=== PATIENT | female | born 1965 | race Caucasian/White ===

== ENCOUNTER → 2017-01-23 | Outpatient (CLI) | payer OTHER ==
[~2017-01-23] MED LIST: /AUGM875TA; BISO5TAB5 PO; DARV100T; DARVOCET-N PO; DOXE50CA2 OR; DOXYCYC100 PO; DRIS50002 PO; HYDR-3363 PO; HYDR25TA8 OR; LISINOPR10; LORTAB; OMEPRAZ20 PO; PRIN10TA; VENL150C43 PO; VICO5TAB16 PO; ZOFR8TAB; ZOFRAN8 PO; ZOLO50TA; ZOLOFT25; ZOLOFT50 PO
--- NOTE | 2017-01-23 16:21 | REPMRS ---
Patient History The patient states she had a clinical breast exam in 12/2016. Family history of ovarian cancer in mother under age 50 and colorectal cancer in maternal cousin under age 50. Benign US guided breast biopsy of the right breast, February 2015. Benign radio exam breast specimen of the left breast, December 06, 2014. Benign stereotatic loc for ea lesion of the left breast, December 06, 2014. Digital Woman Screen Mammo: January 23, 2017 - Exam #: [id number] Bilateral CC and MLO view(s) were taken. Technologist: Daysi Hubbard, Technologist Prior study comparison: October 27, 2014, left breast digital mammo diagnostic unilateral, performed at [facility]. October 13, 2014, digital woman screen mammo performed at [facility]. May 13, 2013, digital woman screen mammo performed at [facility]. FINDINGS: There are scattered fibroglandular densities. There is a needle biopsy marker clip in each breast. There has been no change in the appearance of the mammogram from the prior studies. There is a mild amount of scattered fibroglandular density which is fairly symmetric. There is no interval development of dominant mass, architectural distortion, or clustered microcalcification suggestive of malignancy. ASSESSMENT: BI-RADS/ACR category 1 mammogram. Negative. Recommendation Routine screening mammogram in 1 year (for women over age 40). This mammogram was interpreted with the aid of an FDA-approved computer-aided dectection system. Electronically Signed By: Keith Antoine MD 01/23/17 [id number]
== END ==
LOC: M WHC 14:50
PROVIDERS: ATTEND Nurse Practitioner Women's Health
DX: Z12.31 Encounter for screening mammogram for malignant neoplasm of breast (principal)

== ENCOUNTER → 2017-01-23 | Outpatient (REF) | payer OTHER | LOC: M SFHCWAGY 15:34 | PROVIDERS: ATTEND Nurse Practitioner Women's Health | DX: Z12.4 Encounter for screening for malignant neoplasm of cervix (principal) ==

== ENCOUNTER 2018-04-13 13:10 | Emergency (ER) | payer OTHER ==
[2018-04-13 13:56] LABS: HEMATOCRIT 29.9 % (36.0-47.0); HEMOGLOBIN 8.8 g/dl (12.0-15.5); MEAN CORPUSCULAR HEMOGLOBIN 20.5 pg (27.0-33.0); MEAN CORPUSCULAR HGB CONC 29.4 g/dl (32.0-36.5); MEAN CORPUSCULAR VOLUME 69.5 fl (80.0-96.0); PLATELET COUNT, AUTOMATED 133 10^3/uL (150-450); RED CELL DISTRIBUTION WIDTH 18.1 % (11.5-14.5); WHITE BLOOD COUNT 5.9 10^3/uL (4.0-10.0)
[2018-04-13 14:12] LABS: CONTROL LINE HCG INT CTR LINE PRESENT; HCG, SERUM QUALITATIVE NEGATIVE (NEGATIVE)
[2018-04-13 14:39] LABS: ACETAMINOPHEN LEVEL < 2.0 UG/ML (10.0-30.0); ALBUMIN 3.4 GM/DL (3.2-5.2); ALBUMIN/GLOBULIN RATIO 0.94 (1.00-1.93); ALKALINE PHOSPHATASE 96 U/L (45-117); ALT/SGPT 50 U/L (12-78); ANION GAP 12 MEQ/L (8-16); AST/SGOT 62 U/L (7-37); BILIRUBIN,DIRECT 0.1 MG/DL (0.0-0.2); BILIRUBIN,TOTAL 0.3 MG/DL (0.2-1.0); BLOOD UREA NITROGEN 5 MG/DL (7-18); CALCIUM LEVEL 8.2 MG/DL (8.5-10.1); CARBON DIOXIDE LEVEL 22 MEQ/L (21-32); CHLORIDE LEVEL 106 MEQ/L (98-107); CPK CREATINE PHOSPHOKINASE 76 U/L (26-192); CREATININE FOR GFR 0.53 MG/DL (0.55-1.30); ETHYL ALCOHOL (ETHANOL) 0.332 % (0.000-0.010); GLOMERULAR FILTRATION RATE > 60.0 (>51); GLUCOSE, FASTING 146 MG/DL (70-100); POTASSIUM SERUM 3.7 MEQ/L (3.5-5.1); SALICYLATE LEVEL < 1.7 MG/DL (5.0-30.0); SODIUM LEVEL 140 MEQ/L (136-145); THYROID STIMULATING HORMONE 0.695 uIU/ML (0.358-3.740)
[2018-04-13 15:08] LABS: AMPHETAMINES LEVEL URINE NEGATIVE (NEGATIVE); BARBITURATES URINE NEGATIVE (NEGATIVE); BENZODIAZEPINES URINE NEGATIVE (NEGATIVE); CANNABINOIDS URINE NEGATIVE (NEGATIVE); COCAINE METABOLITE URINE NEGATIVE (NEGATIVE); METHADONE URINE NEGATIVE (NEGATIVE); OPIATES URINE NEGATIVE (NEGATIVE); PHENCYCLIDINE URINE NEGATIVE (NEGATIVE)
== END 2018-04-13 22:42 | disposition home or self-care (01) ==
LOC: M ED 13:10
DX: F10.129 Alcohol abuse with intoxication, unspecified (principal); Y90.1 Blood alcohol level of 20-39 mg/100 ml; F33.9 Major depressive disorder, recurrent, unspecified; E66.9 Obesity, unspecified; Z79.899 Other long term (current) drug therapy; Z88.5 Allergy status to narcotic agent; F17.210 Nicotine dependence, cigarettes, uncomplicated
CPT/HCPCS: G0480

== ENCOUNTER → 2018-09-29 | Outpatient (REF) | payer BC ==
[~2018-09-29] MED LIST changes: +ADVI200T PO; -DRIS50002 PO; +DRIS50003 PO; +ESCI10TA2 PO; +OMEP40CA2 PO
== END ==
LOC: M SFHCPLAZ 12:17
PROVIDERS: ATTEND Nurse Practitioner Family
DX: R94.5 Abnormal results of liver function studies (principal); F41.1 Generalized anxiety disorder; I10 Essential (primary) hypertension; E55.9 Vitamin D deficiency, unspecified

== ENCOUNTER → 2018-10-08 | Outpatient (CLI) | payer BC ==
--- NOTE | 2018-10-08 18:30 | REP ---
Clinical: Elevated liver function tests. Technique: Real time stern scale ultrasound examination using curved array transducer. Findings: Liver is increased echogenicity consistent with fatty infiltration. No focal hepatic lesions are identified. Pancreas is unremarkable but limited due to interposed bowel gas. The patient is known to be status post cholecystectomy. No biliary ductal dilatation is appreciated and the common bile duct measures 5.0 mm diameter. The right kidney is normal in reniform shape without hydronephrosis and measures 10.5 x 4.8 x 4.5 cm. No ascites. Impression: Hepatic steatosis. Evidence for prior cholecystectomy.
== END ==
LOC: M WHC 07:54
PROVIDERS: ATTEND Nurse Practitioner Family
DX: R94.5 Abnormal results of liver function studies (principal); K75.81 Nonalcoholic steatohepatitis (NASH)

== ENCOUNTER → 2018-12-31 | Outpatient (REF) | payer BC ==
[~2018-12-31] MED LIST changes: +ONDA-227; -VICO5TAB16 PO; +VICO5TAB17 PO; -ZOFR8TAB
[2018-12-31 11:21] LABS: ALBUMIN 3.8 GM/DL (3.2-5.2); ALT/SGPT 41 U/L (12-78); BILIRUBIN,TOTAL 0.5 MG/DL (0.2-1.0); BLOOD UREA NITROGEN 6 MG/DL (7-18); CALCIUM LEVEL 8.9 MG/DL (8.5-10.1); CARBON DIOXIDE LEVEL 27 MEQ/L (21-32); CHLORIDE LEVEL 108 MEQ/L (98-107); CHOLESTEROL LEVEL 163 MG/DL (<200); CHOLESTEROL RISK RATIO 4.405 (<5); CREATININE FOR GFR 0.71 MG/DL (0.55-1.30); GLOMERULAR FILTRATION RATE > 60.0 (>51); GLUCOSE, FASTING 127 MG/DL (70-100); HDL CHOLESTEROL 37 MG/DL (>40); LDL CHOLESTEROL 92 MG/DL (<100); NON-HDL-C 126 MG/DL; POTASSIUM SERUM 4.1 MEQ/L (3.5-5.1); SODIUM LEVEL 142 MEQ/L (136-145); TOTAL PROTEIN 7.5 GM/DL (6.4-8.2); TRIGLYCERIDES LEVEL 171 MG/DL (<150)
[2018-12-31 11:27] LABS: TOTAL 25(OH) VITAMIN D 51.8 NG/ML (30.0-100.0)
[2018-12-31 11:32] LABS: HEMOGLOBIN A1c 5.2 %
== END ==
LOC: M SFHCPLAZ 08:46
PROVIDERS: ATTEND Nurse Practitioner Family
DX: R94.5 Abnormal results of liver function studies (principal); I10 Essential (primary) hypertension; E55.9 Vitamin D deficiency, unspecified; Z83.3 Family history of diabetes mellitus; Z12.11 Encounter for screening for malignant neoplasm of colon

== ENCOUNTER → 2019-10-05 | Outpatient (REF) | payer BC ==
[~2019-10-05] MED LIST changes: +BISO5TAB14 PO; -BISO5TAB5 PO; -OMEP40CA2 PO; +OMEP40CA97 PO
[2019-10-05 12:12] LABS: ALBUMIN 3.5 GM/DL (3.2-5.2); ALT/SGPT 119 U/L (12-78); BLOOD UREA NITROGEN 4 MG/DL (7-18); CALCIUM LEVEL 8.7 MG/DL (8.5-10.1); CARBON DIOXIDE LEVEL 26 MEQ/L (21-32); CHLORIDE LEVEL 107 MEQ/L (98-107); CHOLESTEROL LEVEL 173 MG/DL (<200); CREATININE FOR GFR 0.65 MG/DL (0.55-1.30); FREE T4 0.86 NG/DL (0.76-1.46); GLOMERULAR FILTRATION RATE > 60.0 (>51); GLUCOSE, FASTING 156 MG/DL (70-100); HDL CHOLESTEROL 49 MG/DL (>40); LDL CHOLESTEROL 94 MG/DL (<100); NON-HDL-C 124 MG/DL; POTASSIUM SERUM 3.9 MEQ/L (3.5-5.1); SODIUM LEVEL 141 MEQ/L (136-145); TOTAL PROTEIN 6.9 GM/DL (6.4-8.2); TRIGLYCERIDES LEVEL 149 MG/DL (<150)
== END ==
LOC: M SFHCPLAZ 09:06
PROVIDERS: ATTEND Nurse Practitioner Family
DX: I10 Essential (primary) hypertension (principal); E55.9 Vitamin D deficiency, unspecified; F41.1 Generalized anxiety disorder

== ENCOUNTER 2020-01-21 15:55 | Inpatient (IN) | payer BC ==
[~2020-01-21] VITALS: Ht 172.7 cm; Wt 70.7 kg
[2020-01-21] VITALS (9 sets, daily range): BP systolic 117–132; BP diastolic 63–74
[~2020-01-21 15:55] MED LIST changes: +ESCI10TA16 PO; -ESCI10TA2 PO; -ESCI20TA PO; -HYDR50TA70 PO
[2020-01-21] MEDS ORDERED: D5W/0.45% SODIUM CHLORIDE 1,000 ML IV SCH (17:25)
[2020-01-21] MEDS ORDERED: DEXTROSE 50% 50 ML SYRINGE IV PRN (17:30)
[2020-01-21] MEDS ORDERED: PANTOPRAZOLE 40MG VIAL (C9113 PER 1) IV ONE (17:30)
[2020-01-21] MEDS ORDERED: GLUCAGON INJ 1MG VIAL SC PRN (17:30)
[2020-01-21] MEDS ORDERED: ONDANSETRON 4MG/2ML VIAL IV PRN (17:30)
[2020-01-21] MEDS ORDERED: ONDANSETRON 4MG/2ML VIAL IV ONE (17:30)
[2020-01-21] MEDS ORDERED: GLUCOSE 4GM CHEW TABLET PO PRN (17:30)
[2020-01-21] MEDS ORDERED: NS 1,000 ML IV ONE (17:30)
--- NOTE | 2020-01-21 17:47 | REP ---
Clinical: Shortness of breath . Comparison: 02/04/2013 . Findings: The mediastinum and cardiac silhouette are stable and within normal limits for portable technique. The lung downing are clear without acute consolidation, effusion, or pneumothorax. Skeletal structures are intact. Impression: No acute cardiopulmonary process appreciated. Electronically Signed by Jb Okeefe MD 01/21/2020 05:39 P
[2020-01-21 17:50] LABS: BASO % 0.4 % (0.0-1.0); EOS % 0.6 % (0.0-3.0); HEMATOCRIT 23.2 % (36.0-47.0); LYMPH # 0.4 10^3/uL (1.5-5.0); LYMPH % 8.7 % (24.0-44.0); MEAN CORPUSCULAR HEMOGLOBIN 19.9 pg (27.0-33.0); MEAN CORPUSCULAR HGB CONC 26.7 g/dl (32.0-36.5); MEAN CORPUSCULAR VOLUME 74.6 fl (80.0-96.0); MONO # 0.4 10^3/uL (0.0-0.8); MONO % 8.5 % (0.0-5.0); NEUTROPHILS # 3.8 10^3/uL (1.5-8.5); NEUTROPHILS % 81.2 % (36.0-66.0); PLATELET COUNT, AUTOMATED 116 10^3/uL (150-450); RED BLOOD COUNT 3.11 10^6/uL (4.00-5.40); WHITE BLOOD COUNT 4.7 10^3/uL (4.0-10.0)
[2020-01-21 17:56] LABS: HEMOGLOBIN 6.2 g/dl (12.0-15.5)
[2020-01-21] MEDS ORDERED: ISOVUE-370 76% 100ML VIAL As Ordered ONE (17:58)
[2020-01-21] MEDS ORDERED: METOCLOPRAMIDE INJ 10MG/2ML VIAL (J2765 PER 1) IV SCH (18:00)
[2020-01-21] MEDS ORDERED: ESCI20TA16 PO (18:25)
[2020-01-21] MEDS ORDERED: HYDR50TA70 PO (18:25)
[2020-01-21 18:26] LABS: ALBUMIN 2.8 GM/DL (3.2-5.2); ALT/SGPT 108 U/L (12-78); BILIRUBIN,DIRECT 1.4 MG/DL (0.0-0.2); BLOOD UREA NITROGEN 4 MG/DL (7-18); C REACTIVE PROTEIN QUANTITATIV 0.62 MG/DL (0.00-0.30); CALCIUM LEVEL 8.6 MG/DL (8.5-10.1); CARBON DIOXIDE LEVEL 23 MEQ/L (21-32); CHLORIDE LEVEL 104 MEQ/L (98-107); CK-MB VALUE MASS < 1.0 NG/ML (<3.6); CPK CREATINE PHOSPHOKINASE 52 U/L (26-192); CREATININE FOR GFR 0.51 MG/DL (0.55-1.30); GLOMERULAR FILTRATION RATE > 60.0 (>51); GLUCOSE, FASTING 104 MG/DL (70-100); LIPASE 291 U/L (73-393); MB/CK RELATIVE INDEX 1.92 (< OR =4); POTASSIUM SERUM 4.1 MEQ/L (3.5-5.1); SODIUM LEVEL 134 MEQ/L (136-145); TOTAL PROTEIN 6.4 GM/DL (6.4-8.2); TROPONIN I < 0.02 NG/ML (< 0.10)
[2020-01-21 18:40] LABS: ERYTHROCYTE SEDIMENTATION RATE 48 mm/hr (0-30)
--- NOTE | 2020-01-21 18:43 | REPVR ---
PROCEDURE INFORMATION: Exam: CT Abdomen And Pelvis With Contrast Exam date and time: 01/21/2020 6:23 PM Age: 54 years old Clinical indication: Abdominal pain; Additional info: Abd pain n/v/d TECHNIQUE: Imaging protocol: Computed tomography of the abdomen and pelvis with intravenous contrast. Radiation optimization: All CT scans at this facility use at least one of these dose optimization techniques: automated exposure control; mA and/or kV adjustment per patient size (includes targeted exams where dose is matched to clinical indication); or iterative reconstruction. Contrast material: ISOVUE 370; Contrast volume: 100 ml; Contrast route: INTRAVENOUS (IV); COMPARISON: CT ABD PELVIS W/O CONTRAST 01/21/2020 2:59 PM FINDINGS: Lungs: Bibasilar atelectasis. Liver: There is a diffuse decrease in hepatic parenchymal density, consistent with steatosis. Acute steatohepatitis is not excluded. Gallbladder and bile ducts: There has been a cholecystectomy. Pancreas: Normal. No ductal dilation. Spleen: There is mild splenomegaly with a maximum span of 14 centimeters. No focal abnormalities demonstrated. Adrenals: There is bilateral adrenal hyperplasia with nodules measuring up to 1.8 x 1.3 cm in the left adrenal gland. Kidneys and ureters: Normal. No hydronephrosis. Stomach and bowel: Unremarkable. No obstruction. No mucosal thickening. Appendix: No evidence of appendicitis. Intraperitoneal space: Unremarkable. No free air. No significant fluid collection. Vasculature: Unremarkable. No abdominal aortic aneurysm. Lymph nodes: Unremarkable. No enlarged lymph nodes. Bladder: Thick-walled urinary bladder likely related to incomplete distention. Reproductive: Retro positioned uterus increased thickness of the central endometrial lucency measuring approximately 1.8 cm. Correlation with pelvic ultrasound recommended to exclude an endometrial mass. Left ovarian calcification may represent an incidental dermoid. Bones/joints: Unremarkable. No acute fracture. Soft tissues: Unremarkable. IMPRESSION: 1. There is a diffuse decrease in hepatic parenchymal density, consistent with steatosis. Acute steatohepatitis is not excluded. 2. There has been a cholecystectomy. 3. There is mild splenomegaly with a maximum span of 14 centimeters. No focal abnormalities demonstrated. 4. There is bilateral adrenal hyperplasia with nodules measuring up to 1.8 x 1.3 cm in the left adrenal gland. 5. Retro positioned uterus increased thickness of the central endometrial lucency measuring approximately 1.8 cm. Correlation with pelvic ultrasound recommended to exclude an endometrial mass. Electronically signed by: Good Goldberg 01/21/2020 18:43:17 PM
[2020-01-21 18:58] LABS: HEPATITIS B SURFACE ANTIGEN NEGATIVE (NEGATIVE)
[2020-01-21 19:11] LABS: FERRITIN 16 NG/ML (8-252); IRON (FE) 13 UG/DL (50-170); PERCENT SATURATION 5.4 % (13.2-45.0); TOTAL IRON BINDING CAPACITY 241 UG/DL (250-450)
[2020-01-21 19:24] LABS: HEPATITIS C VIRUS ABY INDEX 0.2 INDEX (<0.8)
[2020-01-21 19:25] LABS: HEPATITIS B CORE ANTIBODY IGM NEGATIVE (NEGATIVE)
[2020-01-21 19:28] LABS: HEPATITIS A ANTIBODY IGM NEGATIVE (NEGATIVE)
[2020-01-22] VITALS (13 sets, daily range): BP systolic 123–163; BP diastolic 66–81
[2020-01-22 01:10] LABS: HEMATOCRIT 29.8 % (36.0-47.0); HEMOGLOBIN 8.7 g/dl (12.0-15.5)
--- NOTE | 2020-01-22 02:00 | REPVR ---
PROCEDURE INFORMATION: Exam: US Pelvis Complete, Transabdominal and US Pelvis, Transvaginal Exam date and time: 01/22/2020 1:30 AM Age: 54 years old Clinical indication: Abnormal findings; Abnormal imaging test; Additional info: Endometrial thickening R/O mass TECHNIQUE: Imaging protocol: Real-time transabdominal and transvaginal pelvic ultrasound (complete) with image documentation. Transvaginal imaging was used for better evaluation of the endometrium and adnexa. COMPARISON: CT ABD PELVIS WITH CONTRAST 01/21/2020 6:09 PM FINDINGS: Uterus/cervix: Uterus measures 7.8 x 4.3 x 5.4 cm. No uterine masses. Endometrial stripe measures 12 mm in thickness. Right adnexa: Right ovary is obscured by overlying bowel gas. Left adnexa: Left ovary measures 2.1 x 1.0 x 2.1 cm. Normal vascular flow in the left ovary. No masses. Free fluid: Trace fluid in the cul-de-sac. Bladder: Bladder is unremarkable. IMPRESSION: 1. Thickened endometrial stripe for postmenopausal female. Endometrial hyperplasia versus polyp versus neoplasm. Correlate clinically. 2. Unremarkable left ovary. 3. Right ovary not seen. Electronically signed by: Erik Grayson On 01/22/2020 01:59:47 AM
[2020-01-22 06:09] LABS: HEMOGLOBIN 8.4 g/dl (12.0-15.5); MEAN CORPUSCULAR HEMOGLOBIN 22.5 pg (27.0-33.0); MEAN CORPUSCULAR VOLUME 77.7 fl (80.0-96.0); PLATELET COUNT, AUTOMATED 108 10^3/uL (150-450); RED BLOOD COUNT 3.73 10^6/uL (4.00-5.40); WHITE BLOOD COUNT 4.1 10^3/uL (4.0-10.0)
[2020-01-22 06:27] LABS: BLOOD UREA NITROGEN 6 MG/DL (7-18); CALCIUM LEVEL 7.9 MG/DL (8.5-10.1); CARBON DIOXIDE LEVEL 25 MEQ/L (21-32); CHLORIDE LEVEL 107 MEQ/L (98-107); CREATININE FOR GFR 0.49 MG/DL (0.55-1.30); GLOMERULAR FILTRATION RATE > 60.0 (>51); GLUCOSE, FASTING 97 MG/DL (70-100); POTASSIUM SERUM 3.5 MEQ/L (3.5-5.1); SODIUM LEVEL 139 MEQ/L (136-145)
[2020-01-22 06:34] LABS: FREE THYROXINE INDEX 1.6 % (1.3-4.8); THYROID STIMULATING HORMONE 2.12 uIU/ML (0.358-3.740); THYROXINE (T4) 4.4 UG/DL (4.5-12.0)
[2020-01-22] MEDS ORDERED: hydrOXYzine 50 MG TAB PO PRN (07:30)
[2020-01-22] MEDS ORDERED: ESCITALOPRAM OXALATE 10 MG TAB (LEXAPRO) PO SCH (09:00)
[2020-01-22] MEDS ORDERED: OMEPRAZOLE 20 MG CAP PO SCH (09:00)
[2020-01-22] MEDS ORDERED: bisoproloL fumarate 5 MG TAB PO SCH (09:00)
--- NOTE | 2020-01-22 11:49 | HPE ---
DATE OF ADMISSION: 01/21/2020 CHIEF COMPLAINT: Nausea, vomiting, diarrhea, decreased appetite fatigue and 15-pound weight loss for the past month. HISTORY OF PRESENT ILLNESS: This is a 54-year-old female with the past medical history significant for active tobacco use currently smoking 4-5 cigarettes a day, depression, insomnia, anxiety, history of substance abuse, fibrocystic breast disease, hypertension and vitamin D deficiency who was in her usual state of health until about a month ago when she started developing nauseas, vomiting, diarrhea, decreased appetite and a 15-pound weight loss. She was seen at her primary care physician's office and blood test was done showing severe anemia prompting her to come the emergency room. Patient describes watery diarrhea about once or twice a day for the past month, vomiting once a day usually after being up for a couple of hours. She has had green bilious emesis without any abdominal pain. No blood or mucous. Patient denies black tarry stools, hematemesis, coffee-ground emesis. Denied any prior history of peptic ulcer disease, gastritis. Denies any nonsteroidal anti-inflammatory use or prior history of diverticulosis or diverticular bleeding. Patient was scheduled for a colonoscopy September 2019 but was postponed due to the COVID-19. She never filled out the paperwork to get scheduled. She had noticed that she had been increasingly fatigued and somewhat run down during her job. 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 She has no prior history of inflammatory bowel disease. Denies any mouth ulcers, skin rash. No unusual arthritic problems aside from her chronic pain in the right elbow where she had a tendon repair by Dr. Whittington in 2015 and pin removal in 2016. No unusual skin rashes. Patient denied any blood diarrhea. Denies any abdominal pain. No fever or chills at home. No shortness of breath, chest pain, pressure or tightness. She denies any insomnia. Denies any dysuria, urgency or frequency. At [facility], she was found to be anemia. Hospitalist was called to admit for symptomatic anemia and for further evaluation. PAST MEDICAL HISTORY: Hypertension. Vitamin Do deficiency. Fibrocystic breast disease. Active smoker, now down to 5 cigarettes a day History of substance abuse. Left fibular fracture. Anxiety. Depression. Insomnia. ALLERGIES: CITALOPRAM causing dizziness. PAST SURGICAL HISTORY: Right elbow comminuted fracture with tendon repair by Dr. Whittington in 2015. Pin removed from the right elbow in 2016. Cholecystectomy. Tubal ligation. FAMILY HISTORY: Father at age 56 with emphysema, hypertension. Mother at age 65, cerebrovascular accident (CVA) myocardial infarction (GA) and hypertension. Two siblings in a motor vehicle accident. SOCIAL HISTORY: Patient actively smokes five cigarettes now daily. She drinks alcohol about three beers a day. She works as a caregiver. Children age 18 and 10. Lives with her at home. REVIEW OF SYSTEMS: Per history of present illness (HPI). 12-point system otherwise negative. PHYSICAL EXAMINATION: Temperature 98.8, pulse 80, respiratory rate 18, blood pressure 117/71, 98% on room air. Generally, patient is awake, alert, oriented to person, place and time, answering questions appropriately. No conversational dyspnea. Patient does have pallor. No icterus or jaundice. No jugular venous distention (JVD), thyromegaly or cervical lymphadenopathy. Lungs are clear to auscultation. No wheezing, rales or rhonchi. Heart: S1, S2, sinus rhythm. Abdomen is soft, nontender, nondistended. Positive bowel sounds. No rebound or guarding. No hepatosplenomegaly. No abdominal bruit. Extremities: No cyanosis, clubbing or any pitting edema. Emergency room physician had done a hemoccult stool which was reportedly positive. LABORATORY DATA: White count 4.7, hemoglobin 6, hematocrit 23, platelet count 116. Sodium 134, potassium 4.1, chloride 104, bicarbonate 23, BUN 4, creatinine 0.5, glucose 104, calcium 8.6, iron 13, TIBC 251, ferritin 16. Total bilirubin 2, direct bilirubin 1.4, AST 154, ALT 108, alkaline phosphatase 325. Total CK 52, MB fraction less than 1, relative index 1.92, troponin less than 0.02, C-reactive protein 0.60, total protein 6.4, albumin 6.2, lipase 291. 01/21/2020 chest x-ray: No acute cardiopulmonary process appreciated. CT abdomen and pelvis 01/21/2020: Diffuse hepatic parenchymal density consistent with steatosis. Acute steatohepatitis is not excluded. There has been a cholecystectomy and mild splenomegaly. No focal abnormalities. Bilateral adrenal hyperplasia with nodules measuring up to 1.3 cm in the left adrenal gland. Retro-positioned uterus, increased thickness of the central endometrial lucency approximately 1.8 cm. Pelvic ultrasound recommended to exclude an endometrial mass. ASSESSMENT/PLAN: 54-year-old female presented to the emergency room with complaint of nausea, vomiting, diarrhea at home for the past 1 month with a 15-pound weight loss and increasing fatigue found by her primary care physician to be anemic with a hemoglobin of 6 and sent to the emergency room for admission and evaluation. ACTIVE ISSUES: 1. Symptomatic anemia with heme positive stool, currently nothing by mouth status given Reglan and Zofran as needed. IV fluids and Protonix. CT abdomen and pelvis showed steatosis. The a patient has abnormal liver function tests. Will check hepatitis profile. THIAGO, P-ANCA, IBD serology. Will need to be referred to a instructor physical as an outpatient. Encouraged to discontinue alcohol use or to decrease use. Patient will be transfused 4 units red blood cells. Refer to either general surgery or gastroenterology (GI) for colonoscopy and esophagogastroduodenoscopy (EGD) at this time. If the patient's hemoglobin remains stable, can do outpatient followup. If patient's hemoglobin continues to decrease, patient may need endoscopy and colonoscopy during this admission. General surgery is available. 2. Abnormal liver function tests with history of alcohol use: We will check hepatitis profile. Encourage to discontinue use of alcohol. Check lipid profile as well. Check THIAGO, antimitochondrial antibody. Ferritin is normal. Will check serial plasma, THIAGO, P-ANCA. Patient's CT abdomen and pelvis showed steatosis with a steatohepatitis could not be excluded. 3. Mild splenomegaly: Will tract for hemolytic anemia. Check peripheral blood smear for schistocytes. Check haptoglobin and LDH and a María test. 4. Adrenal hyperplasia Incidental finding, 1.3 cm in the left gland with nodules measuring up to 1.8 and 1.3 cm with bilateral adrenal hyperplasia. asymptomatic may check cortisol, urinary cortisol. 17hydroxyketosteroids. 5. Endometrial thickening, incidental finding: Rule out endometrial mass. Check a pelvic ultrasound. 6. Active smoking tobacco cessation counseling. Nicotine patch. 7. Three beers daily alcohol use: Monitor for signs of withdrawal. DISPOSITION: The patient is adamant about being discharged in the morning. I have explained to her that it depends on whether she continues to drop her hemoglobin. She may do outpatient followup. LEWIS
--- NOTE | 2020-01-22 15:20 | DSES ---
DATE OF ADMISSION: 01/21/2020 DATE OF DISCHARGE: 01/22/2020 Patient was adamant about being discharged today and did not want to stay for further evaluation or treatment. PRIMARY DISCHARGE DIAGNOSES: 1. Symptomatic anemia. 2. Probable chronic gastrointestinal (GI) bleed. 3. Incidental finding of bilateral adrenal nodule. 4. Incidental finding of endometrial thickening. 5. Hyperplasia versus polyp versus neoplasm. 6. Steatosis. 7. Bilateral adrenal hyperplasia with nodules. DISCHARGE MEDICATIONS: - bisoprolol 5 mg daily - citalopram 20 mg daily - hydroxyzine 50 mg twice a day as needed - Prilosec 40 mg daily DISCHARGE INSTRUCTIONS: Patient was instructed to followup with primary care physician within 5 days of hospital discharge, refer to gastroenterology for colonoscopy, esophagogastroduodenoscopy (EGD) and gynecology to evaluate the endometrial hyperplasia, rule out tumor versus hyperplasia, primary care provider (PCP) to evaluate patient's adrenals. HOSPITAL COURSE: This is a 54-year-old female, presented to the emergency room with complaints of one month of nausea, vomiting, diarrhea, and 15-pound weight loss, was found by primary care physician to have significant anemia with hemoglobin of 6, admitted through the emergency room. CT abdomen and pelvis showed no mass, but had incidental finding of bilateral adrenal hyperplasia, liver steatosis, mild splenomegaly and a 1.8 cm central endometrial lucency, cannot exclude endometrial mass. Patient was consented for blood, received four units red blood cell (RBC) transfusion. She was symptomatic with resultant increase in hemoglobin. She was orthostatic on arrival. Patient had no upper GI symptoms. Denies hematemesis, coffee-ground emesis. She also denied any bright red blood per rectum, melena, or black, tarry stools. No bowel movement occurred during the hospital stay. She was evaluated for inflammatory bowel disease with serology, which was pending on the day of discharge. The patient was adamant about being released 24 hours after admission, did not consent to further evaluation or testing. Iron studies were anemia of chronic disease, liver function tests were elevated with steatosis on CT. Lipid profile was pending. PHYSICAL EXAM: Temperature 97.6, pulse 65, respiratory rate 16, blood pressure 142/81, 97% on room air. Generally, awake, alert, oriented times three, answering questions appropriately. No respiratory distress. Able to speak in full sentences. No jugular venous distention (JVD). No cervical lymphadenopathy. Lungs are clear to auscultation. No wheezing, rales or rhonchi. Heart: S1, S2, sinus rhythm. Abdomen is soft, nontender, nondistended. Positive bowel sounds. Extremities: No cyanosis, clubbing or pitting edema. LABORATORY DATA: Repeat hemoglobin and hematocrit is not back yet. After two units of RBC transfusion, hemoglobin increased to 8.4 from 6.2, hematocrit from 23 to 29. White count 4.1, platelet count of 108. Sodium 139, potassium 3.5, chloride 107, bicarbonate 25, BUN 6, creatinine 0.49, glucose of 97, iron 13, TIBC 241, total bilirubin 2, direct bilirubin 1.4, AST 154, ALT 108, alkaline phosphatase of 325, LDH 117, total CK of 52, troponin less than 0.02, C-reactive protein 0.6, TSH 2.12. IMAGING STUDIES: Pelvic ultrasound 01/21/2020: Thickened endometrial stripe for postmenopausal female. Endometrial hyperplasia versus polyp versus neoplasm. Correlate clinically. Unremarkable left ovary. Right ovary is not seen. CT abdomen and pelvis: Bilateral adrenal hyperplasia, thick-walled retro-positioned uterus, mild splenomegaly, steatosis. TIME SPENT ON DISCHARGE: 30 minutes. MTDD
[2020-01-25 13:07] LABS: Chitobioside Carbohydrat (ACCA 47 units (0-90); Laminaribioside Carbohyd (ALCA 1 units (0-60); Mannobioside Carbohydrat (AMCA 11 units (0-100); Saccharomyces cerevisiae IgG A 6 units (0-50)
[2020-01-25 16:08] LABS: ANCA-ATYPICAL <1:20 titer (Neg:<1:20); ANTINUCLEAR ANTIBODIES DIRECT Negative (Negative); CYTOPLASMIC NEUTROP AB ANCA-C <1:20 titer (Neg:<1:20); PERINUCLEAR AB ANCA-P <1:20 titer (Neg:<1:20)
== END 2020-01-22 13:33 | disposition home or self-care (01) | DRG 663 ==
LOC: M ED 15:55 → M ED INP 17:27 → ENRESERV 18:07 → M MSPAV 19:34
PROVIDERS: ADMIT General Practice; ATTEND General Practice
PROC: 30233N1 Transfusion of Nonautologous Red Blood Cells into Peripheral Vein, Percutaneous Approach (ICD-10-PCS; principal; 2020-01-21)
DX: D64.9 Anemia, unspecified (principal); E27.8 Other specified disorders of adrenal gland; K76.0 Fatty (change of) liver, not elsewhere classified; R16.1 Splenomegaly, not elsewhere classified; R19.7 Diarrhea, unspecified; R53.83 Other fatigue; R63.0 Anorexia; R63.4 Abnormal weight loss; F17.210 Nicotine dependence, cigarettes, uncomplicated; F32.9 Major depressive disorder, single episode, unspecified; G47.00 Insomnia, unspecified; R93.89 Abnormal findings on diagnostic imaging of other specified body structures; K92.2 Gastrointestinal hemorrhage, unspecified; F41.9 Anxiety disorder, unspecified; N60.19 Diffuse cystic mastopathy of unspecified breast; I10 Essential (primary) hypertension; R94.5 Abnormal results of liver function studies; E55.9 Vitamin D deficiency, unspecified; R11.2 Nausea with vomiting, unspecified; Z87.81 Personal history of (healed) traumatic fracture; Z90.49 Acquired absence of other specified parts of digestive tract

== ENCOUNTER → 2020-01-21 | Outpatient (REF) | payer BC ==
[~2020-01-21] MED LIST changes: +ESCI10TA16 PO; -ESCI10TA2 PO; +ESCI20TA16 PO; +HYDR50TA70 PO
[2020-01-21 15:10] LABS: BASO % 0.6 % (0.0-1.0); EOS # 0.1 10^3/uL (0.0-0.5); EOS % 1.2 % (0.0-3.0); LYMPH # 0.6 10^3/uL (1.5-5.0); LYMPH % 11.3 % (24.0-44.0); MEAN CORPUSCULAR HEMOGLOBIN 20.2 pg (27.0-33.0); MEAN CORPUSCULAR HGB CONC 26.9 g/dl (32.0-36.5); MEAN CORPUSCULAR VOLUME 74.9 fl (80.0-96.0); MONO # 0.6 10^3/uL (0.0-0.8); MONO % 10.9 % (0.0-5.0); NEUTROPHILS # 3.9 10^3/uL (1.5-8.5); NEUTROPHILS % 75.4 % (36.0-66.0); PLATELET COUNT, AUTOMATED 144 10^3/uL (150-450); RED BLOOD COUNT 3.47 10^6/uL (4.00-5.40); WHITE BLOOD COUNT 5.2 10^3/uL (4.0-10.0)
[2020-01-21 15:16] LABS: HEMOGLOBIN 6.9 g/dl (12.0-15.5)
[2020-01-21 15:24] LABS: ALT/SGPT 120 U/L (12-78); BILIRUBIN,DIRECT 1.5 MG/DL (0.0-0.2); BILIRUBIN,TOTAL 1.9 MG/DL (0.2-1.0); BLOOD UREA NITROGEN 4 MG/DL (7-18); CALCIUM LEVEL 8.7 MG/DL (8.5-10.1); CARBON DIOXIDE LEVEL 26 MEQ/L (21-32); CHLORIDE LEVEL 105 MEQ/L (98-107); FERRITIN 19 NG/ML (8-252); GLOMERULAR FILTRATION RATE > 60.0 (>51); GLUCOSE, FASTING 127 MG/DL (70-100); IRON (FE) 11 UG/DL (50-170); PERCENT SATURATION 4.5 % (13.2-45.0); POTASSIUM SERUM 4.1 MEQ/L (3.5-5.1); SODIUM LEVEL 140 MEQ/L (136-145); TOTAL IRON BINDING CAPACITY 242 UG/DL (250-450); TOTAL PROTEIN 6.7 GM/DL (6.4-8.2)
[2020-01-21 15:29] LABS: INR 1.14; PROTHROMBIN TIME 14.3 SECONDS (11.8-14.0)
[2020-01-24 10:29] LABS: HEPATITIS B SURFACE ANTIGEN NEGATIVE (NEGATIVE)
[2020-01-24 10:56] LABS: HEPATITIS B CORE ANTIBODY IGM NEGATIVE (NEGATIVE); HEPATITIS C VIRUS ABY INDEX 0.3 INDEX (<0.8)
[2020-01-24 10:58] LABS: HEPATITIS A ANTIBODY IGM NEGATIVE (NEGATIVE)
== END ==
LOC: M SFHCPLAZ 13:52
PROVIDERS: ATTEND Nurse Practitioner Family
DX: R94.5 Abnormal results of liver function studies (principal); R11.10 Vomiting, unspecified; R10.9 Unspecified abdominal pain; R19.7 Diarrhea, unspecified

== ENCOUNTER → 2020-01-21 | Outpatient (CLI) | payer BC ==
[~2020-01-21] MED LIST changes: -ESCI10TA16 PO; +ESCI10TA2 PO; +ESCI20TA PO; -ESCI20TA16 PO
--- NOTE | 2020-01-22 07:28 | REP ---
CT ABDOMEN AND PELVIS WITHOUT IV OR ORAL CONTRAST: HISTORY: Vomiting. Flank pain. No comparison study. CT FINDINGS: Digital preliminary churn tender radiograph shows clips in right upper quadrant post cholecystectomy. Bowel gas pattern is normal. The lung bases are clear on axial CT images. There is marked diffuse fatty infiltration of the liver. There is an area of fat sparing near the falciform ligament. The gallbladder is surgically absent. No focal liver lesion is seen. The spleen is unremarkable. There are bilateral adrenal nodules. On the left in the lateral limb of the adrenal, there is a 1.6 cm nodule and on the right in the medial limb of the adrenal, there is a 1.1 cm nodule. No abnormality is noted in the pancreas. No retroperitoneal mass or adenopathy is seen. The kidneys are morphologically intact. No calculus or hydronephrosis is seen in the kidneys. No renal mass or cyst is observed. No pelvic mass or adenopathy is seen. The uterus is retroverted retroflexed and slightly heterogeneous. Question small fibroids. No ovarian ed is seen on either side. There are phleboliths in the pelvis. Urinary bladder is unremarkable. Normal appendix is seen. Small and large bowel loops are unremarkable. IMPRESSION: Marked diffuse fatty infiltration of the liver. Post cholecystectomy clips. No urinary tract calculus or hydronephrosis. Small bilateral adrenal nodules. 1.6 and 1.1 cm in diameter on the left and right respectively. 6-month follow-up CT study suggested. Question small uterine fibroids. Normal appendix. Electronically Signed by Eleazar Antoine MD 01/23/2020 06:15 P
== END ==
LOC: M RAD 14:37
PROVIDERS: ATTEND Nurse Practitioner Family
DX: K76.0 Fatty (change of) liver, not elsewhere classified (principal); E27.9 Disorder of adrenal gland, unspecified; R10.9 Unspecified abdominal pain; R11.10 Vomiting, unspecified

== ENCOUNTER → 2020-01-27 | Outpatient (REF) | payer BC ==
[~2020-01-27] MED LIST changes: -ESCI10TA16 PO; +ESCI10TA2 PO; +ESCI20TA PO; +HYDR50TA70 PO
[2020-01-27 13:31] LABS: HEMATOCRIT 43.9 % (36.0-47.0); MEAN CORPUSCULAR HEMOGLOBIN 24.5 pg (27.0-33.0); MEAN CORPUSCULAR HGB CONC 29.6 g/dl (32.0-36.5); MEAN CORPUSCULAR VOLUME 82.7 fl (80.0-96.0); PLATELET COUNT, AUTOMATED 108 10^3/uL (150-450); RED BLOOD COUNT 5.31 10^6/uL (4.00-5.40); WHITE BLOOD COUNT 5.3 10^3/uL (4.0-10.0)
[2020-01-27 13:50] LABS: ALBUMIN 3.3 GM/DL (3.2-5.2); ALT/SGPT 97 U/L (12-78); BILIRUBIN,TOTAL 1.5 MG/DL (0.2-1.0); BLOOD UREA NITROGEN 2 MG/DL (7-18); CALCIUM LEVEL 8.9 MG/DL (8.5-10.1); CARBON DIOXIDE LEVEL 28 MEQ/L (21-32); CHLORIDE LEVEL 106 MEQ/L (98-107); CREATININE FOR GFR 0.55 MG/DL (0.55-1.30); FERRITIN 96 NG/ML (8-252); GLOMERULAR FILTRATION RATE > 60.0 (>51); GLUCOSE, FASTING 108 MG/DL (70-100); POTASSIUM SERUM 3.9 MEQ/L (3.5-5.1); SODIUM LEVEL 141 MEQ/L (136-145); TOTAL PROTEIN 7.2 GM/DL (6.4-8.2)
== END ==
LOC: M SFHCPLAZ 11:55
PROVIDERS: ATTEND Nurse Practitioner Family
DX: R19.7 Diarrhea, unspecified (principal); D50.0 Iron deficiency anemia secondary to blood loss (chronic); K76.0 Fatty (change of) liver, not elsewhere classified

== ENCOUNTER → 2020-01-31 | Outpatient (REF) | payer BC ==
[2020-01-31 11:30] LABS: APPEARANCE, URINE HAZY (CLEAR); BACTERIA, URINE AUTO 1+ (NEGATIVE); BILIRUBIN, URINE AUTO NEGATIVE (NEGATIVE); BLOOD, URINE BLOOD NEGATIVE (NEGATIVE); COLOR, URINE AMBER (YELLOW); GLUCOSE, URINE (UA) AUTO NEGATIVE (NEGATIVE); GRANULAR CAST, URINE AUTO 2 /LPF; KETONE, URINE AUTO NEGATIVE (NEGATIVE); LEUKOCYTE ESTERASE, URINE AUTO NEGATIVE (NEGATIVE); MUCUS, URINE SMALL (NEGATIVE); NITRITE, URINE AUTO NEGATIVE (NEGATIVE); PROTEIN, URINE AUTO NEGATIVE (NEGATIVE); RBC, URINE AUTO 1 /HPF (0-3); SPECIFIC GRAVITY URINE AUTO 1.013 (1.002-1.035); SQUAMOUS EPITHELIAL CELL UR AU 2 /HPF (0-6); WBC, URINE AUTO 3 /HPF (0-3)
== END ==
LOC: M SFHCPLAZ 10:50
PROVIDERS: ATTEND Nurse Practitioner Family
DX: N39.0 Urinary tract infection, site not specified (principal)

== ENCOUNTER → 2020-02-02 | Outpatient (REF) | payer BC | LOC: M SFHCPLAZ 11:35 | PROVIDERS: ATTEND Nurse Practitioner Family | DX: R19.7 Diarrhea, unspecified (principal) ==

== ENCOUNTER → 2020-02-08 | Outpatient (REF) | payer BC ==
[2020-02-08 12:04] LABS: APPEARANCE, URINE CLEAR (CLEAR); BACTERIA, URINE AUTO 1+ (NEGATIVE); BILIRUBIN, URINE AUTO NEGATIVE (NEGATIVE); BLOOD, URINE BLOOD NEGATIVE (NEGATIVE); COLOR, URINE YELLOW (YELLOW); GLUCOSE, URINE (UA) AUTO NEGATIVE (NEGATIVE); KETONE, URINE AUTO NEGATIVE (NEGATIVE); LEUKOCYTE ESTERASE, URINE AUTO TRACE (NEGATIVE); NITRITE, URINE AUTO NEGATIVE (NEGATIVE); PROTEIN, URINE AUTO NEGATIVE (NEGATIVE); RBC, URINE AUTO 0 /HPF (0-3); SPECIFIC GRAVITY URINE AUTO 1.011 (1.002-1.035); SQUAMOUS EPITHELIAL CELL UR AU 0 /HPF (0-6); UROBILINOGEN, URINE AUTO 0.2 mg/dL (0.0-2.0); WBC, URINE AUTO 1 /HPF (0-3)
== END ==
LOC: M SFHCPLAZ 08:58
PROVIDERS: ATTEND Nurse Practitioner Family
DX: R35.0 Frequency of micturition (principal)

== ENCOUNTER → 2020-03-14 | Outpatient (REF) | payer BC | LOC: M SFHCWAGY 19:26 | PROVIDERS: ATTEND Specialist | DX: N85.00 Endometrial hyperplasia, unspecified (principal) ==

== ENCOUNTER → 2020-03-28 | Outpatient (CLI) | payer BC ==
[2020-03-28 12:52] LABS: HEMATOCRIT 42.2 % (36.0-47.0); HEMOGLOBIN 13.3 g/dl (12.0-15.5); MEAN CORPUSCULAR HEMOGLOBIN 30.4 pg (27.0-33.0); MEAN CORPUSCULAR HGB CONC 31.5 g/dl (32.0-36.5); MEAN CORPUSCULAR VOLUME 96.3 fl (80.0-96.0); PLATELET COUNT, AUTOMATED 156 10^3/uL (150-450); RED BLOOD COUNT 4.38 10^6/uL (4.00-5.40); WHITE BLOOD COUNT 4.5 10^3/uL (4.0-10.0)
[2020-03-28 13:20] LABS: ALBUMIN 3.5 GM/DL (3.2-5.2); ALT/SGPT 111 U/L (12-78); BILIRUBIN,TOTAL 0.7 MG/DL (0.2-1.0); BLOOD UREA NITROGEN 4 MG/DL (7-18); CALCIUM LEVEL 9.3 MG/DL (8.5-10.1); CARBON DIOXIDE LEVEL 27 MEQ/L (21-32); CHLORIDE LEVEL 106 MEQ/L (98-107); CREATININE FOR GFR 0.46 MG/DL (0.55-1.30); FERRITIN 132 NG/ML (8-252); GLOMERULAR FILTRATION RATE > 60.0 (>51); GLUCOSE, FASTING 134 MG/DL (70-100); POTASSIUM SERUM 4.2 MEQ/L (3.5-5.1); SODIUM LEVEL 140 MEQ/L (136-145); TOTAL PROTEIN 7.3 GM/DL (6.4-8.2)
== END ==
LOC: M PLALAB 08:21
PROVIDERS: ATTEND Nurse Practitioner Family
DX: I10 Essential (primary) hypertension (principal); D50.0 Iron deficiency anemia secondary to blood loss (chronic); K76.0 Fatty (change of) liver, not elsewhere classified; E55.9 Vitamin D deficiency, unspecified

== ENCOUNTER → 2020-04-01 | Outpatient (CLI) | payer BC | LOC: M LABSMTC 10:59 | PROVIDERS: ATTEND Anesthesiology | DX: Z01.812 Encounter for preprocedural laboratory examination (principal); Z20.828 Contact with and (suspected) exposure to other viral communicable diseases | CPT/HCPCS: C9803; U0003 ==

== ENCOUNTER 2020-04-06 09:57 | Day surgery (SDC) | payer BC ==
[~2020-04-06] VITALS: Ht 172.7 cm; Wt 69.9 kg
[~2020-04-06 09:57] MED LIST changes: +NS 1,000 ML IV ONE
[2020-04-06] MEDS ORDERED: fentaNYL 100 MCG/2 ML INJECTION (J3010) As Ordered ONE (12:26)
[2020-04-06] MEDS ORDERED: LIDOCAINE 2% MDV 20ML VIAL As Ordered ONE (12:26)
[2020-04-06] MEDS ORDERED: propofoL 500 MG/50 ML VIAL As Ordered ONE (12:26)
--- NOTE | 2020-04-06 12:28 | ROOR ---
Patient Name: Maria Isabel Mao Procedure Date: 04/06/2020 12:05 PM Date of : 1965 Age: 54 Room: [facility] Gender: Female Note Status: Finalized Procedure: Upper GI endoscopy Indications: Iron deficiency anemia Providers: Leonidas Voss MD Referring MD: Jackelin Hickman NP Requesting Provider: Medicines: Monitored Anesthesia Care Complications: No immediate complications. Procedure: Pre-Anesthesia Assessment: - Prior to the procedure, a History and Physical was performed, and patient medications and allergies were reviewed. The patient is competent. The risks and benefits of the procedure and the sedation options and risks were discussed with the patient. All questions were answered and informed consent was obtained. Patient identification and proposed procedure were verified by the physician, the nurse and the anesthesiologist in the procedure room. Mental Status Examination: alert and oriented. Airway Examination: normal oropharyngeal airway and neck mobility. Respiratory Examination: clear to auscultation. CV Examination: normal. Prophylactic Antibiotics: The patient does not require prophylactic antibiotics. Prior Anticoagulants: The patient has taken no previous anticoagulant or antiplatelet agents. ASA Grade Assessment: II - A patient with mild systemic disease. After reviewing the risks and benefits, the patient was deemed in satisfactory condition to undergo the procedure. The anesthesia plan was to use monitored anesthesia care (MAC). Immediately prior to administration of medications, the patient was re-assessed for adequacy to receive sedatives. The heart rate, respiratory rate, oxygen saturations, blood pressure, adequacy of pulmonary ventilation, and response to care were monitored throughout the procedure. The physical status of the patient was re-assessed after the procedure. The Endoscope was introduced through the mouth, and advanced to the second part of duodenum. The upper GI endoscopy was accomplished without difficulty. The patient tolerated the procedure well. Findings: The examined esophagus was normal. The Z-line was regular and was found 36 cm from the incisors. Scattered mild inflammation characterized by erythema and granularity was found in the gastric antrum. Biopsies were taken with a cold forceps for Helicobacter pylori testing. Verification of patient identification for the specimen was done by the physician and nurse using the patient's name, date and medical record number. Estimated blood loss was minimal. The duodenal bulb and second portion of the duodenum were normal. Biopsies for histology were taken with a cold forceps for evaluation of celiac disease. Impression: - Normal esophagus. - Z-line regular, 36 cm from the incisors. - Gastritis. Biopsied. - Normal duodenal bulb and second portion of the duodenum. Biopsied. Recommendation: - Patient has a contact number available for emergencies. The signs and symptoms of potential delayed complications were discussed with the patient. Return to normal activities tomorrow. Written discharge instructions were provided to the patient. - High fiber diet. - Continue present medications. - Await pathology results. - Telephone GI clinic for pathology results in 2 weeks. - Return to primary care physician. - Follow the recommendations as per the other procedure note. Leonidas Voss MD Leonidas Voss MD 04/06/2020 12:28:03 PM Electronically signed by Leonidas Voss MD Number of Addenda: 0 Note Initiated On: 04/06/2020 12:05 PM Estimated Blood Loss: Estimated blood loss was minimal.
[2020-04-06 12:55] VITALS: BP 142/67
--- NOTE | 2020-04-06 12:55 | ROOR ---
Patient Name: Maria Isabel Mao Procedure Date: 04/06/2020 12:06 PM Date of : 1965 Age: 54 Room: [facility] Gender: Female Note Status: Finalized Procedure: Colonoscopy Indications: Screening for colorectal malignant neoplasm Providers: Leonidas Voss MD Referring MD: Jackelin Hickman NP Requesting Provider: Medicines: Monitored Anesthesia Care Complications: No immediate complications. Procedure: Pre-Anesthesia Assessment: - Prior to the procedure, a History and Physical was performed, and patient medications and allergies were reviewed. The patient is competent. The risks and benefits of the procedure and the sedation options and risks were discussed with the patient. All questions were answered and informed consent was obtained. Patient identification and proposed procedure were verified by the physician, the nurse and the anesthesiologist in the procedure room. Mental Status Examination: alert and oriented. Airway Examination: normal oropharyngeal airway and neck mobility. Respiratory Examination: clear to auscultation. CV Examination: normal. Prophylactic Antibiotics: The patient does not require prophylactic antibiotics. Prior Anticoagulants: The patient has taken no previous anticoagulant or antiplatelet agents. ASA Grade Assessment: II - A patient with mild systemic disease. After reviewing the risks and benefits, the patient was deemed in satisfactory condition to undergo the procedure. The anesthesia plan was to use monitored anesthesia care (MAC). Immediately prior to administration of medications, the patient was re-assessed for adequacy to receive sedatives. The heart rate, respiratory rate, oxygen saturations, blood pressure, adequacy of pulmonary ventilation, and response to care were monitored throughout the procedure. The physical status of the patient was re-assessed after the procedure. The Colonoscope was introduced through the anus and advanced to the terminal ileum, with identification of the appendiceal orifice and IC valve. The colonoscopy was performed without difficulty. The patient tolerated the procedure well. The quality of the bowel preparation was good. The terminal ileum, ileocecal valve, appendiceal orifice, and rectum were photographed. Scope insertion time was 3 minutes. Scope withdrawal time was 10 minutes. The total duration of the procedure was 14 minutes. Findings: The perianal and digital rectal examinations were normal. The terminal ileum contained two 5 mm diverticula. The terminal ileum appeared normal. Non-bleeding external and internal hemorrhoids were found during retroflexion. The hemorrhoids were medium-sized. Normal mucosa was found in the entire colon. Impression: - Ileal diverticula. - The examined portion of the ileum was normal. - Non-bleeding external and internal hemorrhoids. - Normal mucosa in the entire examined colon. - No specimens collected. Recommendation: - Patient has a contact number available for emergencies. The signs and symptoms of potential delayed complications were discussed with the patient. Return to normal activities tomorrow. Written discharge instructions were provided to the patient. - High fiber diet. - Continue present medications. - Use fiber, for example Citrucel, Fibercon, Konsyl or Metamucil. - Repeat colonoscopy in 10 years for screening purposes. - Return to primary care physician. Leonidas Voss MD Leonidas Voss MD 04/06/2020 12:54:59 PM Electronically signed by Leonidas Voss MD Number of Addenda: 0 Note Initiated On: 04/06/2020 12:06 PM Estimated Blood Loss: Estimated blood loss was minimal.
== END 2020-04-06 13:25 | disposition home or self-care (01) ==
LOC: M OPP 09:57
PROVIDERS: ATTEND Internal Medicine Gastroenterology
DX: K57.10 Diverticulosis of small intestine without perforation or abscess without bleeding (principal); K64.8 Other hemorrhoids; K29.70 Gastritis, unspecified, without bleeding; D50.9 Iron deficiency anemia, unspecified; K21.9 Gastro-esophageal reflux disease without esophagitis; R19.7 Diarrhea, unspecified; R12 Heartburn; I10 Essential (primary) hypertension; Z79.899 Other long term (current) drug therapy
CPT/HCPCS: 45378; 88305; J3010

== ENCOUNTER → 2020-05-17 | Outpatient (CLI) | payer BC ==
[~2020-05-17] MED LIST changes: -NS 1,000 ML IV ONE
[2020-05-17 14:23] LABS: ALBUMIN 3.6 GM/DL (3.2-5.2); ALT/SGPT 93 U/L (12-78); BILIRUBIN,DIRECT 0.3 MG/DL (0.0-0.2); BILIRUBIN,TOTAL 0.5 MG/DL (0.2-1.0); HEPATITIS B SURFACE ANTIBODY POSITIVE (POSITIVE); HEPATITIS C VIRUS ABY INDEX 0.1 INDEX (<0.8); TOTAL PROTEIN 7.4 GM/DL (6.4-8.2)
[2020-05-20 06:08] LABS: ANTI-MITOCHONDRIAL ANTIBODY <20.0 Units (0.0-20.0); ANTI-SMOOTH MUSCLE ANTIBODY 5 Units (0-19); ANTINUCLEAR ANTIBODIES DIRECT Negative (Negative); HEPATITIS A IgG TOTAL Positive (Negative); HEPATITIS B CORE ANTIBODY IGG Negative (Negative); LIVER-KIDNEY MICROSOMAL ABY <20.1 Units (0.0-20.0)
== END ==
LOC: M LAB 12:28
PROVIDERS: ATTEND Internal Medicine Gastroenterology
DX: D50.9 Iron deficiency anemia, unspecified (principal); R94.5 Abnormal results of liver function studies

== ENCOUNTER → 2020-10-05 | Outpatient (REF) | payer SELFPAY ==
[~2020-10-05] MED LIST changes: +ESCI10TA16 PO; -ESCI10TA2 PO; -ESCI20TA PO; +ESCI20TA16 PO
[2020-10-05 11:06] LABS: BLOOD UREA NITROGEN 7 MG/DL (7-18); CALCIUM LEVEL 9.4 MG/DL (8.5-10.1); CARBON DIOXIDE LEVEL 34 MEQ/L (21-32); CHLORIDE LEVEL 103 MEQ/L (98-107); CREATININE FOR GFR 0.68 MG/DL (0.55-1.30); FERRITIN 174 NG/ML (8-252); GLOMERULAR FILTRATION RATE > 60.0 (>51); GLUCOSE, FASTING 133 MG/DL (70-100); POTASSIUM SERUM 4.8 MEQ/L (3.5-5.1); SODIUM LEVEL 139 MEQ/L (136-145)
[2020-10-06 07:06] LABS: MUMPS VIRUS IgG ANTIBODY 31.6 AU/mL (Immune >10.9); RUBEOLA IgG ANTIBODY <13.5 AU/mL (Immune >16.4)
== END ==
LOC: M SFHCPLAZ 08:21
PROVIDERS: ATTEND Nurse Practitioner Family
DX: I10 Essential (primary) hypertension (principal); D50.0 Iron deficiency anemia secondary to blood loss (chronic); Z78.9 Other specified health status; Z28.3 Underimmunization status

== ENCOUNTER → 2021-08-17 | Outpatient (CLI) | payer BC ==
[~2021-08-17] MED LIST changes: +OMEP40CA4 PO; -OMEP40CA97 PO
[2021-08-17 17:28] LABS: BASO # 0.1 10^3/uL (0.0-0.2); BASO % 1.3 % (0.0-1.0); EOS # 0.3 10^3/uL (0.0-0.5); EOS % 4.7 % (0.0-3.0); HEMATOCRIT 42.3 % (36.0-47.0); HEMOGLOBIN 13.8 g/dl (12.0-15.5); LYMPH % 17.9 % (24.0-44.0); MEAN CORPUSCULAR HEMOGLOBIN 30.6 pg (27.0-33.0); MEAN CORPUSCULAR HGB CONC 32.6 g/dl (32.0-36.5); MEAN CORPUSCULAR VOLUME 93.8 fl (80.0-96.0); MONO # 0.7 10^3/uL (0.0-0.8); NEUTROPHILS # 3.5 10^3/uL (1.5-8.5); NEUTROPHILS % 62.7 % (36.0-66.0); PLATELET COUNT, AUTOMATED 121 10^3/uL (150-450); RED BLOOD COUNT 4.51 10^6/uL (4.00-5.40); WHITE BLOOD COUNT 5.5 10^3/uL (4.0-10.0)
[2021-08-17 17:47] LABS: ALBUMIN 3.5 GM/DL (3.2-5.2); ALT/SGPT 54 U/L (12-78); BILIRUBIN,TOTAL 0.7 MG/DL (0.2-1.0); BLOOD UREA NITROGEN 3 MG/DL (7-18); CALCIUM LEVEL 9.1 MG/DL (8.5-10.1); CARBON DIOXIDE LEVEL 29 MEQ/L (21-32); CHLORIDE LEVEL 101 MEQ/L (98-107); CHOLESTEROL LEVEL 170 MG/DL (<200); CHOLESTEROL RISK RATIO 4.722 (<5); CREATININE FOR GFR 0.46 MG/DL (0.55-1.30); FREE T4 0.91 NG/DL (0.76-1.46); GLOMERULAR FILTRATION RATE > 60.0 (>51); GLUCOSE, FASTING 108 MG/DL (70-100); HDL CHOLESTEROL 36 MG/DL (>40); LDL CHOLESTEROL 98 MG/DL (<100); NON-HDL-C 134 MG/DL; POTASSIUM SERUM 4.1 MEQ/L (3.5-5.1); SODIUM LEVEL 136 MEQ/L (136-145); TOTAL PROTEIN 7.6 GM/DL (6.4-8.2); TRIGLYCERIDES LEVEL 181 MG/DL (<150)
[2021-08-17 17:57] LABS: HEMOGLOBIN A1c 5.2 %
== END ==
LOC: M PLALAB 15:32
PROVIDERS: ATTEND Physician Assistant
DX: R35.0 Frequency of micturition (principal)

== ENCOUNTER → 2021-09-11 | Outpatient (CLI) | payer BC ==
[~2021-09-11] MED LIST changes: +ISOVUE-370 76% 100ML VIAL As Ordered ONE
== END ==
LOC: M RAD 07:49
PROVIDERS: ATTEND Physician Assistant
DX: E27.8 Other specified disorders of adrenal gland (principal)
CPT/HCPCS: 74177; Q9967

== ENCOUNTER → 2021-09-29 | Outpatient (CLI) | payer BC ==
[~2021-09-29] MED LIST changes: -ISOVUE-370 76% 100ML VIAL As Ordered ONE
== END ==
LOC: M LAB 08:17
PROVIDERS: ATTEND Physician Assistant
DX: E27.8 Other specified disorders of adrenal gland (principal)

== ENCOUNTER → 2021-12-26 | Outpatient (REF) | payer BC | LOC: M LAB REF 11:52 | PROVIDERS: ATTEND Physician Assistant | DX: R05.9 Cough, unspecified (principal) ==

== ENCOUNTER → 2022-01-21 | Outpatient (CLI) | payer BC ==
[2022-01-21 13:47] LABS: INR 1.12; PROTHROMBIN TIME 14.8 SECONDS (12.7-14.5)
[2022-01-21 13:48] LABS: BASO # 0.1 10^3/uL (0.0-0.2); BASO % 1.6 % (0.0-1.0); EOS # 0.2 10^3/uL (0.0-0.5); EOS % 3.7 % (0.0-3.0); HEMATOCRIT 41.9 % (36.0-47.0); HEMOGLOBIN 13.8 g/dl (12.0-15.5); LYMPH # 0.9 10^3/uL (1.5-5.0); LYMPH % 21.4 % (24.0-44.0); MEAN CORPUSCULAR HEMOGLOBIN 30.3 pg (27.0-33.0); MEAN CORPUSCULAR HGB CONC 32.9 g/dl (32.0-36.5); MEAN CORPUSCULAR VOLUME 92.1 fl (80.0-96.0); MONO # 0.6 10^3/uL (0.0-0.8); MONO % 13.3 % (2.0-8.0); NEUTROPHILS # 2.6 10^3/uL (1.5-8.5); NEUTROPHILS % 59.8 % (36.0-66.0); PARTIAL THROMBOPLASTIN TIME 35.4 SECONDS (25.9-37.0); PLATELET COUNT, AUTOMATED 128 10^3/uL (150-450); RED BLOOD COUNT 4.55 10^6/uL (4.00-5.40); WHITE BLOOD COUNT 4.3 10^3/uL (4.0-10.0)
[2022-01-21 16:47] LABS: ALBUMIN 3.7 GM/DL (3.2-5.2); ALT/SGPT 56 U/L (12-78); AMYLASE 50 U/L (25-115); BILIRUBIN,TOTAL 1.2 MG/DL (0.2-1.0); BLOOD UREA NITROGEN 3 MG/DL (7-18); CARBON DIOXIDE LEVEL 29 MEQ/L (21-32); CHLORIDE LEVEL 101 MEQ/L (98-107); CREATININE FOR GFR 0.44 MG/DL (0.55-1.30); GLOMERULAR FILTRATION RATE > 60.0 (>51); GLUCOSE, FASTING 93 MG/DL (70-100); LIPASE 189 U/L (73-393); POTASSIUM SERUM 4.3 MEQ/L (3.5-5.1); SODIUM LEVEL 136 MEQ/L (136-145); TOTAL 25(OH) VITAMIN D 23.7 NG/ML (30.0-100.0); TOTAL PROTEIN 7.7 GM/DL (6.4-8.2)
== END ==
LOC: M PLALAB 10:40
PROVIDERS: ATTEND Physician Assistant
DX: D69.6 Thrombocytopenia, unspecified (principal)

== ENCOUNTER → 2022-03-21 | Outpatient (CLI) | payer BC | LOC: M RAD 09:10 | PROVIDERS: ATTEND Physician Assistant | DX: R16.2 Hepatomegaly with splenomegaly, not elsewhere classified (principal); K76.0 Fatty (change of) liver, not elsewhere classified; R94.5 Abnormal results of liver function studies; Z87.898 Personal history of other specified conditions ==

== ENCOUNTER → 2022-06-05 | Outpatient (CLI) | payer BC ==
[2022-06-05 11:18] LABS: BASO # 0.1 10^3/uL (0.0-0.2); EOS # 0.2 10^3/uL (0.0-0.5); EOS % 3.3 % (0.0-3.0); HEMATOCRIT 43.5 % (36.0-47.0); LYMPH % 19.7 % (24.0-44.0); MEAN CORPUSCULAR HEMOGLOBIN 30.5 pg (27.0-33.0); MEAN CORPUSCULAR HGB CONC 32.2 g/dl (32.0-36.5); MEAN CORPUSCULAR VOLUME 94.8 fl (80.0-96.0); MONO # 0.6 10^3/uL (0.0-0.8); MONO % 11.3 % (2.0-8.0); NEUTROPHILS # 3.3 10^3/uL (1.5-8.5); NEUTROPHILS % 64.5 % (36.0-66.0); RED BLOOD COUNT 4.59 10^6/uL (4.00-5.40); WHITE BLOOD COUNT 5.1 10^3/uL (4.0-10.0)
[2022-06-05 11:58] LABS: ALBUMIN 3.6 GM/DL (3.2-5.2); ALT/SGPT 57 U/L (12-78); BILIRUBIN,TOTAL 1.1 MG/DL (0.2-1.0); BLOOD UREA NITROGEN 4 MG/DL (7-18); CALCIUM LEVEL 8.9 MG/DL (8.5-10.1); CARBON DIOXIDE LEVEL 28 MEQ/L (21-32); CHLORIDE LEVEL 99 MEQ/L (98-107); CHOLESTEROL LEVEL 197 MG/DL (<200); CHOLESTEROL RISK RATIO 2.118 (<5); CREATININE FOR GFR 0.51 MG/DL (0.55-1.30); GLOMERULAR FILTRATION RATE > 60.0 (>51); GLUCOSE, FASTING 121 MG/DL (70-100); HDL CHOLESTEROL 93 MG/DL (>40); LDL CHOLESTEROL 75 MG/DL (<100); NON-HDL-C 104 MG/DL; POTASSIUM SERUM 3.8 MEQ/L (3.5-5.1); SODIUM LEVEL 138 MEQ/L (136-145); TOTAL PROTEIN 7.5 GM/DL (6.4-8.2); TRIGLYCERIDES LEVEL 144 MG/DL (<150)
[2022-06-05 12:15] LABS: PLATELET COUNT, AUTOMATED 99 10^3/uL (150-450)
[2022-06-05 12:16] LABS: ERYTHROCYTE SEDIMENTATION RATE 14 mm/hr (0-30)
[2022-06-05 12:42] LABS: TOTAL 25(OH) VITAMIN D 27.9 NG/ML (30.0-100.0)
== END ==
LOC: M PLALAB 08:23
PROVIDERS: ATTEND Physician Assistant
DX: I10 Essential (primary) hypertension (principal)

== ENCOUNTER → 2022-06-10 | Outpatient (CLI) | payer BC ==
[2022-06-10 13:28] LABS: BASO # 0.1 10^3/uL (0.0-0.2); BASO % 0.9 % (0.0-1.0); EOS # 0.1 10^3/uL (0.0-0.5); EOS % 1.9 % (0.0-3.0); HEMATOCRIT 44.8 % (36.0-47.0); HEMOGLOBIN 14.3 g/dl (12.0-15.5); LYMPH # 0.7 10^3/uL (1.5-5.0); LYMPH % 12.3 % (24.0-44.0); MEAN CORPUSCULAR HEMOGLOBIN 30.2 pg (27.0-33.0); MEAN CORPUSCULAR HGB CONC 31.9 g/dl (32.0-36.5); MEAN CORPUSCULAR VOLUME 94.5 fl (80.0-96.0); MONO # 0.7 10^3/uL (0.0-0.8); MONO % 12.4 % (2.0-8.0); NEUTROPHILS # 4.1 10^3/uL (1.5-8.5); PLATELET COUNT, AUTOMATED 100 10^3/uL (150-450); RED BLOOD COUNT 4.74 10^6/uL (4.00-5.40); WHITE BLOOD COUNT 5.7 10^3/uL (4.0-10.0)
[2022-06-10 13:40] LABS: INR 1.06; PROTHROMBIN TIME 14.1 SECONDS (12.5-14.5)
[2022-06-10 14:39] LABS: FOLATE 20.2 NG/ML (>5.4)
== END ==
LOC: M PLALAB 10:09
PROVIDERS: ATTEND Physician Assistant
DX: D69.6 Thrombocytopenia, unspecified (principal)

== ENCOUNTER → 2022-07-09 | Outpatient (CLI) | payer BC ==
[~2022-07-09] MED LIST changes: +D3 +TAB PO; +FOLI1TAB11 PO; +ONDA4TAB6 PO
== END ==
LOC: M RAD 08:14
PROVIDERS: ATTEND Physician Assistant
DX: Z87.891 Personal history of nicotine dependence (principal); F17.219 Nicotine dependence, cigarettes, with unspecified nicotine-induced disorders

== ENCOUNTER → 2022-10-04 | Outpatient (CLI) | payer BC | LOC: M PLAIMG 09:22 | PROVIDERS: ATTEND Physician Assistant | DX: M54.50 Low back pain, unspecified (principal) ==

== ENCOUNTER → 2022-12-09 | Outpatient (CLI) | payer BC | LOC: M PLARAD 14:20 | PROVIDERS: ATTEND Physician Assistant | DX: R91.1 Solitary pulmonary nodule (principal) | CPT/HCPCS: 78815; A9552 ==

== ENCOUNTER → 2022-12-11 | Outpatient (CLI) | payer BC ==
[2022-12-11 14:40] LABS: ALBUMIN 3.5 G/DL (3.2-5.2); ALKALINE PHOSPHATASE 185 U/L (46-116); ALT/SGPT 65 U/L (7.0-40); AST/SGOT 77 U/L (<34); BASO # 0.1 10^3/uL (0.0-0.2); BASO % 1.4 % (0.0-1.0); BILIRUBIN,TOTAL 1.2 MG/DL (0.3-1.2); BLOOD UREA NITROGEN < 5 MG/DL (9-23); CALCIUM LEVEL 8.6 MG/DL (8.5-10.1); CARBON DIOXIDE LEVEL 30 MMOL/L (20-31); CHLORIDE LEVEL 103 MMOL/L (98-107); CREATININE FOR GFR 0.53 MG/DL (0.55-1.30); EOS # 0.2 10^3/uL (0.0-0.5); EOS % 4.2 % (0.0-3.0); GLOMERULAR FILTRATION RATE > 60.0 (>51); GLUCOSE, FASTING 131 MG/DL (60-100); HEMATOCRIT 41.8 % (36.0-47.0); HEMOGLOBIN 13.7 g/dl (12.0-15.5); IRON (FE) 100 UG/DL (50-170); LYMPH # 0.9 10^3/uL (1.5-5.0); LYMPH % 18.9 % (24.0-44.0); MEAN CORPUSCULAR HGB CONC 32.8 g/dl (32.0-36.5); MEAN CORPUSCULAR VOLUME 94.6 fl (80.0-96.0); MONO # 0.5 10^3/uL (0.0-0.8); MONO % 10.4 % (2.0-8.0); NEUTROPHILS # 3.2 10^3/uL (1.5-8.5); NEUTROPHILS % 64.9 % (36.0-66.0); PERCENT SATURATION 36.2 % (13.2-45.0); PLATELET COUNT, AUTOMATED 134 10^3/uL (150-450); POTASSIUM SERUM 3.9 MMOL/L (3.5-5.1); RED BLOOD COUNT 4.42 10^6/uL (4.00-5.40); SODIUM LEVEL 140 MMOL/L (136-145); TOTAL IRON BINDING CAPACITY 276 UG/DL (250-425)
== END ==
LOC: M PLALAB 10:24
PROVIDERS: ATTEND Physician Assistant
DX: R94.5 Abnormal results of liver function studies (principal)

== ENCOUNTER → 2023-01-23 | Outpatient (CLI) | payer BC | LOC: M RAD 08:10 | PROVIDERS: ATTEND Internal Medicine Gastroenterology | DX: R19.7 Diarrhea, unspecified (principal) ==

== ENCOUNTER → 2023-07-09 | Outpatient (CLI) | payer BC ==
[2023-07-09 16:27] LABS: BASO # 0.1 10^3/uL (0.0-0.2); BASO % 1.4 % (0.0-1.0); EOS # 0.2 10^3/uL (0.0-0.5); EOS % 4.2 % (0.0-3.0); HEMATOCRIT 40.5 % (36.0-47.0); HEMOGLOBIN 13.5 g/dl (12.0-15.5); LYMPH # 1.6 10^3/uL (1.5-5.0); LYMPH % 31.9 % (24.0-44.0); MEAN CORPUSCULAR HEMOGLOBIN 31.2 pg (27.0-33.0); MEAN CORPUSCULAR HGB CONC 33.3 g/dl (32.0-36.5); MEAN CORPUSCULAR VOLUME 93.5 fl (80.0-96.0); MONO # 0.6 10^3/uL (0.0-0.8); MONO % 11.8 % (2.0-8.0); NEUTROPHILS # 2.5 10^3/uL (1.5-8.5); NEUTROPHILS % 50.3 % (36.0-66.0); PLATELET COUNT, AUTOMATED 101 10^3/uL (150-450); RED BLOOD COUNT 4.33 10^6/uL (4.00-5.40)
[2023-07-09 16:50] LABS: FERRITIN 67.7 NG/ML (7.3-270.7); FREE T4 0.95 NG/DL (0.89-1.76); THYROID STIMULATING HORMONE 2.054 uIU/ML (0.55-4.78)
[2023-07-09 16:52] LABS: TOTAL 25(OH) VITAMIN D 18.6 NG/ML (20.0-100.0)
[2023-07-09 16:54] LABS: FOLATE > 24.0 NG/ML (>5.4); VITAMIN B12 LEVEL 348 PG/ML (211-911)
[2023-07-09 16:58] LABS: ALBUMIN 3.8 G/DL (3.2-5.2); ALKALINE PHOSPHATASE 182 U/L (46-116); ALT/SGPT 37 U/L (7.0-40); AST/SGOT 57 U/L (<34); BILIRUBIN,TOTAL 0.6 MG/DL (0.3-1.2); BLOOD UREA NITROGEN < 5 MG/DL (9-23); CALCIUM LEVEL 8.8 MG/DL (8.5-10.1); CARBON DIOXIDE LEVEL 28 MMOL/L (20-31); CHLORIDE LEVEL 101 MMOL/L (98-107); CHOLESTEROL LEVEL 204 MG/DL (<200); CHOLESTEROL RISK RATIO 2.48 (<5); CREATININE FOR GFR 0.48 MG/DL (0.55-1.30); GLOMERULAR FILTRATION RATE > 60.0 (>51); GLUCOSE, FASTING 122 MG/DL (60-100); HDL CHOLESTEROL 82.1 MG/DL (>40); LDL CHOLESTEROL 100.3 MG/DL (<100); NON-HDL-C 121.9 MG/DL; SODIUM LEVEL 135 MMOL/L (136-145); TOTAL PROTEIN 7.5 G/DL (5.7-8.2); TRIGLYCERIDES LEVEL 108 MG/DL (<150)
== END ==
LOC: M PLALAB 12:50
PROVIDERS: ATTEND Physician Assistant
DX: I10 Essential (primary) hypertension (principal)

== ENCOUNTER → 2023-08-07 | Outpatient (CLI) | payer MEDICAID, SELFPAY | LOC: M RAD 08:43 | PROVIDERS: ATTEND Physician Assistant | DX: R91.1 Solitary pulmonary nodule (principal) ==

== ENCOUNTER 2023-08-21 15:46 | Emergency (ER) | payer MEDICAID ==
[~2023-08-21] VITALS: Ht 172.7 cm; Wt 80.5 kg
[~2023-08-21 15:46] MED LIST changes: -ASPI81TA26 PO; -DIGO0.253 PO; -LIDOCAINE 2% 100MG/5ML SDV (FOR ANES.) As Ordered ONE; -NS 1,000 ML IV ONE; -propofoL 200 MG/20 ML VIAL As Ordered ONE
[2023-08-21 17:41] LABS: BASO # 0.1 10^3/uL (0.0-0.2); EOS # 0.1 10^3/uL (0.0-0.5); EOS % 1.9 % (0.0-3.0); HEMATOCRIT 43.6 % (36.0-47.0); HEMOGLOBIN 14.8 g/dl (12.0-15.5); LYMPH # 1.3 10^3/uL (1.5-5.0); LYMPH % 19.4 % (24.0-44.0); MEAN CORPUSCULAR HEMOGLOBIN 31.2 pg (27.0-33.0); MEAN CORPUSCULAR HGB CONC 33.9 g/dl (32.0-36.5); MONO # 0.8 10^3/uL (0.0-0.8); NEUTROPHILS # 4.6 10^3/uL (1.5-8.5); NEUTROPHILS % 66.6 % (36.0-66.0); PLATELET COUNT, AUTOMATED 100 10^3/uL (150-450); RED BLOOD COUNT 4.74 10^6/uL (4.00-5.40); WHITE BLOOD COUNT 6.8 10^3/uL (4.0-10.0)
[2023-08-21 17:58] LABS: INR 1.21
[2023-08-21 17:59] LABS: PARTIAL THROMBOPLASTIN TIME 35.2 SECONDS (24.8-34.2)
[2023-08-21] MEDS ORDERED: METOPROLOL TART 50 MG TAB PO ONE (18:10)
[2023-08-21] MEDS: METOPROLOL 5 MG/5 ML VIAL IV SCH ×3 (18:17→18:29)
[2023-08-21 18:26] LABS: ETHYL ALCOHOL (ETHANOL) 0.123 % (0.000-0.010)
[2023-08-21 18:29] LABS: ALBUMIN 3.5 G/DL (3.2-5.2); ALKALINE PHOSPHATASE 163 U/L (46-116); ALT/SGPT 51 U/L (7.0-40); AST/SGOT 92 U/L (<34); BILIRUBIN,DIRECT 0.8 MG/DL (<0.4); BILIRUBIN,TOTAL 1.7 MG/DL (0.3-1.2); BLOOD UREA NITROGEN < 5 MG/DL (9-23); CALCIUM LEVEL 9.2 MG/DL (8.5-10.1); CARBON DIOXIDE LEVEL 25 MMOL/L (20-31); CHLORIDE LEVEL 104 MMOL/L (98-107); CK-MB VALUE MASS < 1.0 NG/ML (<3.6); CPK CREATINE PHOSPHOKINASE 80 U/L (34-145); CREATININE FOR GFR 0.48 MG/DL (0.55-1.30); FREE T4 1.02 NG/DL (0.89-1.76); GLOMERULAR FILTRATION RATE > 60.0 (>51); GLUCOSE, FASTING 129 MG/DL (60-100); MAGNESIUM LEVEL 1.6 MG/DL (1.8-2.4); MB/CK RELATIVE INDEX 1.25 (< OR =4); POTASSIUM SERUM 3.8 MMOL/L (3.5-5.1); SODIUM LEVEL 133 MMOL/L (136-145); THYROID STIMULATING HORMONE 3.376 uIU/ML (0.55-4.78); TOTAL PROTEIN 7.6 G/DL (5.7-8.2)
[2023-08-21] MEDS ORDERED: MAG SULF 1GM/100ML (MAG RUN) 1 GM in IV 1 EA IV ONE (18:35)
[2023-08-21] MEDS ORDERED: atenoloL 50 MG TAB PO ONE ×2 (19:45→21:35)
[2023-08-21] MEDS ORDERED: DIGOXIN INJ 0.5 MG/2 ML AMP IV ONE ×2 (19:45→21:35)
[2023-08-21] MEDS ORDERED: THIAMINE 100 MG TAB PO SCH (21:00)
[2023-08-21 22:03] VITALS: BP 159/106
[2023-08-21] MEDS: LORazepam 2 MG TAB PO PRN ×2 (22:03→23:48)
[2023-08-21] MEDS ORDERED: FLECAINIDE 50MG TABLET PO STA (23:20)
[2023-08-22 00:11] LABS: CK-MB VALUE MASS < 1.0 NG/ML (<3.6)
[2023-08-22 00:17] LABS: CPK CREATINE PHOSPHOKINASE 71 U/L (34-145)
[2023-08-22 01:11] LABS: AMPHETAMINES LEVEL URINE NEGATIVE (NEGATIVE); BARBITURATES URINE NEGATIVE (NEGATIVE); BENZODIAZEPINES URINE NEGATIVE (NEGATIVE); COCAINE METABOLITE URINE NEGATIVE (NEGATIVE); METHADONE URINE NEGATIVE (NEGATIVE)
[2023-08-22 01:12] LABS: CANNABINOIDS URINE NEGATIVE (NEGATIVE); OPIATES URINE NEGATIVE (NEGATIVE); PHENCYCLIDINE URINE NEGATIVE (NEGATIVE)
[2023-08-22] MEDS ORDERED: DIGO0.253 PO (03:10)
[2023-08-22] MEDS ORDERED: BISO5TAB14 PO (03:10)
[2023-08-22] MEDS ORDERED: ASPI81TA26 PO (03:29)
[2023-08-22 04:00] VITALS: BP 152/89; TEMP 98; O2SAT 93
[2023-08-22] MEDS ORDERED: MULTIVITAMINS/MINERALS THERAP 1 TAB PO SCH (09:00)
[2023-08-22] MEDS ORDERED: FOLIC ACID 1MG TAB PO SCH (09:00)
== END 2023-08-22 04:39 | disposition home or self-care (01) ==
LOC: M ED 15:46
DX: I48.91 Unspecified atrial fibrillation (principal); F10.10 Alcohol abuse, uncomplicated; I10 Essential (primary) hypertension; F32.A Depression, unspecified; F41.9 Anxiety disorder, unspecified; F17.200 Nicotine dependence, unspecified, uncomplicated; Z79.899 Other long term (current) drug therapy; Z88.0 Allergy status to penicillin; Z88.5 Allergy status to narcotic agent
CPT/HCPCS: 71046; 80048; 80076; 80307; 82077; 82550; 82553; 83735; 84439; 84443; 85025; 85610; 85730; 93005; 93041; 94760; 96365; 96375; 96376; 99285; J1160; J3475

== ENCOUNTER → 2023-08-21 | Day surgery (SDC) | payer BC, MEDICAID ==
[~2023-08-21] VITALS: Ht 172.7 cm; Wt 77.1 kg
[~2023-08-21] MED LIST changes: +ASPI81TA26 PO; +DIGO0.253 PO; +LIDOCAINE 2% 100MG/5ML SDV (FOR ANES.) As Ordered ONE; +NS 1,000 ML IV ONE; +propofoL 200 MG/20 ML VIAL As Ordered ONE
== END | disposition home or self-care (01) ==
LOC: M OPP 10:41
PROVIDERS: ATTEND Internal Medicine Gastroenterology
DX: I48.91 Unspecified atrial fibrillation (principal)

== ENCOUNTER → 2023-08-28 | Outpatient (CLI) | payer BC, MEDICAID ==
[~2023-08-28] MED LIST changes: +ASPI81TA26 PO; +DIGO0.253 PO
[2023-08-28 13:31] LABS: INR 1.18; PROTHROMBIN TIME 14.7 SECONDS (12.5-14.5)
[2023-08-28 13:32] LABS: PARTIAL THROMBOPLASTIN TIME 32.9 SECONDS (24.8-34.2)
[2023-08-28 13:36] LABS: BASO # 0.1 10^3/uL (0.0-0.2); BASO % 0.9 % (0.0-1.0); EOS # 0.1 10^3/uL (0.0-0.5); EOS % 2.3 % (0.0-3.0); HEMATOCRIT 45.4 % (36.0-47.0); HEMOGLOBIN 15.1 g/dl (12.0-15.5); LYMPH # 0.9 10^3/uL (1.5-5.0); LYMPH % 16.1 % (24.0-44.0); MEAN CORPUSCULAR HEMOGLOBIN 31.4 pg (27.0-33.0); MEAN CORPUSCULAR HGB CONC 33.3 g/dl (32.0-36.5); MEAN CORPUSCULAR VOLUME 94.4 fl (80.0-96.0); MONO # 0.9 10^3/uL (0.0-0.8); MONO % 16.4 % (2.0-8.0); NEUTROPHILS # 3.7 10^3/uL (1.5-8.5); NEUTROPHILS % 64.1 % (36.0-66.0); RED BLOOD COUNT 4.81 10^6/uL (4.00-5.40); WHITE BLOOD COUNT 5.7 10^3/uL (4.0-10.0)
[2023-08-28 13:40] LABS: PLATELET COUNT, AUTOMATED 94 10^3/uL (150-450)
[2023-08-28 13:44] LABS: DIGOXIN LEVEL 1.5 NG/ML (0.8-2.0)
[2023-08-28 13:48] LABS: ALBUMIN 3.6 G/DL (3.2-5.2); ALKALINE PHOSPHATASE 134 U/L (46-116); ALT/SGPT 39 U/L (7.0-40); AST/SGOT 49 U/L (<34); BILIRUBIN,TOTAL 1.1 MG/DL (0.3-1.2); BLOOD UREA NITROGEN < 5 MG/DL (9-23); CALCIUM LEVEL 9.2 MG/DL (8.5-10.1); CARBON DIOXIDE LEVEL 30 MMOL/L (20-31); CHLORIDE LEVEL 103 MMOL/L (98-107); CREATININE FOR GFR 0.57 MG/DL (0.55-1.30); GLOMERULAR FILTRATION RATE > 60.0 (>51); GLUCOSE, FASTING 119 MG/DL (60-100); POTASSIUM SERUM 4.1 MMOL/L (3.5-5.1); SODIUM LEVEL 138 MMOL/L (136-145); TOTAL PROTEIN 7.2 G/DL (5.7-8.2)
== END ==
LOC: M PLALAB 09:47
PROVIDERS: ATTEND Physician Assistant
DX: I10 Essential (primary) hypertension (principal); D69.6 Thrombocytopenia, unspecified; I48.91 Unspecified atrial fibrillation

== ENCOUNTER 2023-09-18 16:12 | Emergency (ER) | payer SELFPAY ==
[~2023-09-18] VITALS: Ht 172.7 cm; Wt 78.2 kg
[2023-09-18 16:12] VITALS: BP 183/83; TEMP 98.1; O2SAT 98
[2023-09-18] MEDS ORDERED: ROLLMIS8 XX (19:28)
[2023-09-18] MEDS ORDERED: IBUP-1022 PO (19:29)
== END 2023-09-18 19:38 | disposition home or self-care (01) ==
LOC: M ED 16:12
DX: S82.832A Other fracture of upper and lower end of left fibula, initial encounter for closed fracture (principal); Y92.9 Unspecified place or not applicable; Y93.9 Activity, unspecified; Y99.9 Unspecified external cause status; I10 Essential (primary) hypertension; Z88.1 Allergy status to other antibiotic agents; Z88.5 Allergy status to narcotic agent; Z79.899 Other long term (current) drug therapy; Z79.1 Long term (current) use of non-steroidal anti-inflammatories (NSAID)

== ENCOUNTER → 2023-09-25 | Outpatient (CLI) | payer SELFPAY ==
[~2023-09-25] MED LIST changes: +IBUP-1022 PO; +ROLLMIS8 XX
== END ==
LOC: M SOG 14:09
PROVIDERS: ATTEND Physician Assistant
DX: S82.832A Other fracture of upper and lower end of left fibula, initial encounter for closed fracture (principal); W18.30XA Fall on same level, unspecified, initial encounter; Y92.009 Unspecified place in unspecified non-institutional (private) residence as the place of occurrence of the external cause

== ENCOUNTER → 2023-10-09 | Outpatient (CLI) | payer MEDICAID, OTHER, SELFPAY | LOC: M SOG 12:49 | PROVIDERS: ATTEND Physician Assistant | DX: S82.832A Other fracture of upper and lower end of left fibula, initial encounter for closed fracture (principal); W18.30XA Fall on same level, unspecified, initial encounter; Y92.009 Unspecified place in unspecified non-institutional (private) residence as the place of occurrence of the external cause ==

== ENCOUNTER → 2023-10-27 | Outpatient (CLI) | payer MEDICAID, OTHER, SELFPAY | LOC: M CARPUL 07:51 | PROVIDERS: ATTEND Physician Assistant | DX: I48.91 Unspecified atrial fibrillation (principal) ==

== ENCOUNTER → 2023-11-04 | Outpatient (CLI) | payer OTHER | LOC: M SOG 08:20 | PROVIDERS: ATTEND Physician Assistant | DX: S82.832A Other fracture of upper and lower end of left fibula, initial encounter for closed fracture (principal); W18.30XA Fall on same level, unspecified, initial encounter; Y92.009 Unspecified place in unspecified non-institutional (private) residence as the place of occurrence of the external cause ==

== ENCOUNTER 2023-11-20 07:45 | Outpatient (RCR) | payer OTHER | END 2023-11-25 | LOC: M PT 07:45 | PROVIDERS: ATTEND Physician Assistant | DX: S82.832A Other fracture of upper and lower end of left fibula, initial encounter for closed fracture (principal); M25.572 Pain in left ankle and joints of left foot ==

== ENCOUNTER → 2023-12-08 | Outpatient (CLI) | payer OTHER | LOC: M SOG 07:50 | PROVIDERS: ATTEND Physician Assistant | DX: S82.832A Other fracture of upper and lower end of left fibula, initial encounter for closed fracture (principal); W18.30XA Fall on same level, unspecified, initial encounter; Y92.009 Unspecified place in unspecified non-institutional (private) residence as the place of occurrence of the external cause ==

== ENCOUNTER → 2023-12-09 | Outpatient (REF) | LOC: M PLAIMG 10:42 | PROVIDERS: ATTEND Internal Medicine | DX: R52 Pain, unspecified (principal) ==

== ENCOUNTER 2023-12-25 13:00 | Outpatient (RCR) | payer OTHER | END 2023-12-26 | LOC: M PT 13:00 | PROVIDERS: ATTEND Physician Assistant | DX: S82.832A Other fracture of upper and lower end of left fibula, initial encounter for closed fracture (principal) ==

== ENCOUNTER 2024-01-01 08:38 | Outpatient (RCR) | payer OTHER ==
[~2024-01-01 08:38] MED LIST changes: +ONDA-282 PO; -ONDA4TAB6 PO
== END 2024-01-25 ==
LOC: M PT 08:38
PROVIDERS: ATTEND Physician Assistant
DX: S82.832A Other fracture of upper and lower end of left fibula, initial encounter for closed fracture (principal)

== ENCOUNTER 2024-02-25 12:34 | Emergency (ER) | payer OTHER ==
[~2024-02-25] VITALS: Ht 172.7 cm; Wt 81.8 kg
[2024-02-25 12:34] VITALS: BP 117/71; TEMP 97.8; O2SAT 93
[2024-02-25] MEDS ORDERED: DIGO0.123 (12:39)
[2024-02-25] MEDS ORDERED: BUPR150T12 (12:39)
[2024-02-25] MEDS ORDERED: ELIQ5TAB (12:39)
[2024-02-25] MEDS ORDERED: TRAM50TA2 (12:39)
[2024-02-25] MEDS: NEOSPORIN OINT 0.9 GM PKT TOP ONE (15:59)
[2024-02-25] MEDS ORDERED: BACI500O8 TOP (15:59)
== END 2024-02-25 16:08 | disposition home or self-care (01) ==
LOC: M ED 12:34
DX: S90.512A Abrasion, left ankle, initial encounter (principal); Y92.019 Unspecified place in single-family (private) house as the place of occurrence of the external cause; Y93.9 Activity, unspecified; Y99.9 Unspecified external cause status; I48.91 Unspecified atrial fibrillation; I10 Essential (primary) hypertension; F41.9 Anxiety disorder, unspecified; Z88.1 Allergy status to other antibiotic agents; Z88.5 Allergy status to narcotic agent; Z79.2 Long term (current) use of antibiotics; Z79.01 Long term (current) use of anticoagulants; Z79.899 Other long term (current) drug therapy

== ENCOUNTER 2024-03-06 09:56 | Emergency (ER) | payer OTHER ==
[~2024-03-06] VITALS: Ht 172.7 cm; Wt 81.8 kg
[~2024-03-06 09:56] MED LIST changes: +BACI500O8 TOP; +BUPR150T12; +DIGO0.123; +ELIQ5TAB; +TRAM50TA2
[2024-03-06 11:04] LABS: BASO # 0.1 10^3/uL (0.0-0.2); EOS # 0.1 10^3/uL (0.0-0.5); EOS % 1.5 % (0.0-3.0); HEMATOCRIT 43.6 % (36.0-47.0); HEMOGLOBIN 14.5 g/dl (12.0-15.5); LYMPH # 0.8 10^3/uL (1.5-5.0); LYMPH % 14.5 % (24.0-44.0); MEAN CORPUSCULAR HEMOGLOBIN 30.9 pg (27.0-33.0); MEAN CORPUSCULAR HGB CONC 33.3 g/dl (32.0-36.5); MEAN CORPUSCULAR VOLUME 92.8 fl (80.0-96.0); MONO # 0.6 10^3/uL (0.0-0.8); MONO % 11.9 % (2.0-8.0); NEUTROPHILS # 3.7 10^3/uL (1.5-8.5); NEUTROPHILS % 70.7 % (36.0-66.0); PLATELET COUNT, AUTOMATED 113 10^3/uL (150-450); WHITE BLOOD COUNT 5.2 10^3/uL (4.0-10.0)
[2024-03-06 11:08] LABS: ERYTHROCYTE SEDIMENTATION RATE 77 mm/hr (0-30)
[2024-03-06 11:14] LABS: INR 1.49; PARTIAL THROMBOPLASTIN TIME 35.5 SECONDS (24.8-34.2); PROTHROMBIN TIME 17.6 SECONDS (12.5-14.5)
[2024-03-06 11:55] LABS: ALBUMIN 3.4 G/DL (3.2-5.2); ALKALINE PHOSPHATASE 250 U/L (46-116); ALT/SGPT 76 U/L (7.0-40); AST/SGOT 81 U/L (<34); BILIRUBIN,DIRECT 1.9 MG/DL (<0.4); BILIRUBIN,TOTAL 3.1 MG/DL (0.3-1.2); BLOOD UREA NITROGEN < 5 MG/DL (9-23); CALCIUM LEVEL 9.1 MG/DL (8.5-10.1); CARBON DIOXIDE LEVEL 27 MMOL/L (20-31); CHLORIDE LEVEL 100 MMOL/L (98-107); CREATININE FOR GFR 0.58 MG/DL (0.55-1.30); GLOMERULAR FILTRATION RATE > 60.0 (>51); GLUCOSE, FASTING 129 MG/DL (60-100); POTASSIUM SERUM 4.1 MMOL/L (3.5-5.1); PROCALCITONIN 0.11 ng/ml; SODIUM LEVEL 135 MMOL/L (136-145); TOTAL PROTEIN 7.5 G/DL (5.7-8.2)
[2024-03-06 14:37] VITALS: BP 157/82; TEMP 97.9; O2SAT 98
[2024-03-06] MEDS ORDERED: PRED20TA PO (14:52)
[2024-03-06 15:18] LABS: URIC ACID 4.9 MG/DL (3.1-7.8)
== END 2024-03-06 15:07 | disposition home or self-care (01) ==
LOC: M ED 09:56
DX: S90.32XA Contusion of left foot, initial encounter (principal); Y92.9 Unspecified place or not applicable; Y93.9 Activity, unspecified; Y99.9 Unspecified external cause status; I48.91 Unspecified atrial fibrillation; I10 Essential (primary) hypertension; F41.9 Anxiety disorder, unspecified; F32.A Depression, unspecified; F17.210 Nicotine dependence, cigarettes, uncomplicated; F10.10 Alcohol abuse, uncomplicated; Z88.5 Allergy status to narcotic agent; Z88.1 Allergy status to other antibiotic agents; Z79.01 Long term (current) use of anticoagulants; Z79.2 Long term (current) use of antibiotics; Z79.52 Long term (current) use of systemic steroids; Z79.899 Other long term (current) drug therapy

== ENCOUNTER → 2024-03-25 | Outpatient (CLI) | payer OTHER ==
[~2024-03-25] MED LIST changes: +ISOVUE-370 76% 100ML VIAL As Ordered ONE; +PRED20TA PO
[2024-03-25 07:36] LABS: BASO # 0.1 10^3/uL (0.0-0.2); BASO % 1.5 % (0.0-1.0); EOS # 0.2 10^3/uL (0.0-0.5); EOS % 3.2 % (0.0-3.0); HEMATOCRIT 41.6 % (36.0-47.0); HEMOGLOBIN 14.1 g/dl (12.0-15.5); LYMPH # 1.6 10^3/uL (1.5-5.0); LYMPH % 33.8 % (24.0-44.0); MEAN CORPUSCULAR HEMOGLOBIN 30.6 pg (27.0-33.0); MEAN CORPUSCULAR HGB CONC 33.9 g/dl (32.0-36.5); MEAN CORPUSCULAR VOLUME 90.2 fl (80.0-96.0); MONO # 0.4 10^3/uL (0.0-0.8); MONO % 7.5 % (2.0-8.0); NEUTROPHILS # 2.5 10^3/uL (1.5-8.5); NEUTROPHILS % 53.8 % (36.0-66.0); PLATELET COUNT, AUTOMATED 144 10^3/uL (150-450); RED BLOOD COUNT 4.61 10^6/uL (4.00-5.40); WHITE BLOOD COUNT 4.7 10^3/uL (4.0-10.0)
[2024-03-25 08:02] LABS: TOTAL 25(OH) VITAMIN D 50.6 NG/ML (20.0-100.0)
[2024-03-25 08:09] LABS: ALBUMIN 3.3 G/DL (3.2-5.2); ALKALINE PHOSPHATASE 196 U/L (46-116); ALT/SGPT 52 U/L (7.0-40); AST/SGOT 81 U/L (<34); BILIRUBIN,TOTAL 1.4 MG/DL (0.3-1.2); BLOOD UREA NITROGEN < 5 MG/DL (9-23); CALCIUM LEVEL 8.7 MG/DL (8.5-10.1); CARBON DIOXIDE LEVEL 25 MMOL/L (20-31); CHLORIDE LEVEL 101 MMOL/L (98-107); CREATININE FOR GFR 0.52 MG/DL (0.55-1.30); GLOMERULAR FILTRATION RATE > 60.0 (>51); GLUCOSE, FASTING 122 MG/DL (60-100); POTASSIUM SERUM 3.8 MMOL/L (3.5-5.1); SODIUM LEVEL 136 MMOL/L (136-145); TOTAL PROTEIN 6.7 G/DL (5.7-8.2)
== END ==
LOC: M RAD 07:09
PROVIDERS: ATTEND Physician Assistant
DX: I10 Essential (primary) hypertension (principal); I48.91 Unspecified atrial fibrillation; E55.9 Vitamin D deficiency, unspecified

== ENCOUNTER → 2024-05-06 | Outpatient (CLI) | payer OTHER ==
[~2024-05-06] MED LIST changes: -ISOVUE-370 76% 100ML VIAL As Ordered ONE
[2024-05-06 11:01] LABS: BASO # 0.1 10^3/uL (0.0-0.2); BASO % 1.4 % (0.0-1.0); EOS # 0.2 10^3/uL (0.0-0.5); EOS % 4.1 % (0.0-3.0); HEMATOCRIT 39.6 % (36.0-47.0); HEMOGLOBIN 13.1 g/dl (12.0-15.5); LYMPH # 1.7 10^3/uL (1.5-5.0); LYMPH % 33.5 % (24.0-44.0); MEAN CORPUSCULAR HEMOGLOBIN 30.5 pg (27.0-33.0); MEAN CORPUSCULAR HGB CONC 33.1 g/dl (32.0-36.5); MEAN CORPUSCULAR VOLUME 92.3 fl (80.0-96.0); MONO # 0.4 10^3/uL (0.0-0.8); MONO % 8.3 % (2.0-8.0); NEUTROPHILS # 2.7 10^3/uL (1.5-8.5); NEUTROPHILS % 52.5 % (36.0-66.0); PLATELET COUNT, AUTOMATED 106 10^3/uL (150-450); RED BLOOD COUNT 4.29 10^6/uL (4.00-5.40); WHITE BLOOD COUNT 5.2 10^3/uL (4.0-10.0)
[2024-05-06 13:48] LABS: ALBUMIN 3.1 G/DL (3.2-5.2); ALKALINE PHOSPHATASE 227 U/L (46-116); ALT/SGPT 53 U/L (7.0-40); AST/SGOT 77 U/L (<34); BILIRUBIN,TOTAL 1.7 MG/DL (0.3-1.2); BLOOD UREA NITROGEN < 5 MG/DL (9-23); CALCIUM LEVEL 8.8 MG/DL (8.5-10.1); CARBON DIOXIDE LEVEL 28 MMOL/L (20-31); CHLORIDE LEVEL 99 MMOL/L (98-107); CREATININE FOR GFR 0.52 MG/DL (0.55-1.30); FERRITIN 114.3 NG/ML (7.3-270.7); GLOMERULAR FILTRATION RATE > 60.0 (>51); GLUCOSE, FASTING 108 MG/DL (60-100); POTASSIUM SERUM 3.7 MMOL/L (3.5-5.1); SODIUM LEVEL 133 MMOL/L (136-145); TOTAL PROTEIN 6.8 G/DL (5.7-8.2)
[2024-05-06 13:56] LABS: CREATININE, URINE 17.4 MG/DL; MALB URINE SIEMENS < 3.0 MG/L; MAU/CREAT RATIO 17.2 MCG/MG (0.0-30.0)
[2024-05-07 09:56] LABS: HEPATITIS B SURFACE ANTIGEN NEGATIVE (NEGATIVE)
[2024-05-07 10:17] LABS: HEPATITIS B CORE ANTIBODY IGM NEGATIVE (NEGATIVE); HEPATITIS C VIRUS ABY INDEX 0.04 INDEX (<0.8)
== END ==
LOC: M PLALAB 07:50
PROVIDERS: ATTEND Physician Assistant
DX: H53.8 Other visual disturbances (principal); I10 Essential (primary) hypertension; D50.0 Iron deficiency anemia secondary to blood loss (chronic)

== ENCOUNTER → 2024-05-07 | Outpatient (CLI) | payer OTHER | LOC: M PLALAB 08:47 | PROVIDERS: ATTEND Physician Assistant | DX: R79.89 Other specified abnormal findings of blood chemistry (principal) ==

== ENCOUNTER → 2024-08-27 | Outpatient (CLI) | payer OTHER | LOC: M RAD 09:53 | PROVIDERS: ATTEND Physician Assistant Medical | DX: R94.5 Abnormal results of liver function studies (principal); R16.2 Hepatomegaly with splenomegaly, not elsewhere classified; K70.0 Alcoholic fatty liver; R74.01 Elevation of levels of liver transaminase levels ==

== ENCOUNTER 2024-10-03 10:35 | Emergency (ER) | payer OTHER ==
[2024-10-03] MEDS ORDERED: CALCIUM CHLORIDE 10% 1 GM/10 ML SYR ONE (10:36)
[2024-10-03] MEDS ORDERED: SODIUM BICARBONATE 8.4% INJ 50ML SYRINGE ONE (10:36)
[2024-10-03] MEDS ORDERED: EPINEPHrine 1MG/10ML SYRINGE 1.5IN ONE (10:36)
[2024-10-03] MEDS ORDERED: OCTREOTIDE ACETATE 1,200 MCG in NS 238.8 ML IV SCH (10:45)
[2024-10-03] MEDS: PANTOPRAZOLE 40MG VIAL IV ONE (10:57)
[2024-10-03] MEDS: OCTREOTIDE ACETATE 100MCG/ML VIAL **IV ADMINISTRATION ONLY IV ONE (10:58)
[2024-10-03] MEDS: PANTOPRAZOLE SODIUM 40 MG in DEXTROSE 5% (D5W) ADV/MINI-BAG 50 ML IV SCH (10:58)
[2024-10-03] MEDS: VASOPRESSIN IN 0.9 % NACL 20 UNIT in IV 1 EA IV SCH (11:00)
[2024-10-03] MEDS: ONDANSETRON 4MG 2ML VIAL IV ONE (11:00)
[2024-10-03 11:06] LABS: MEAN CORPUSCULAR HEMOGLOBIN 34.6 pg (27.0-33.0); MEAN CORPUSCULAR HGB CONC 30.6 g/dl (32.0-36.5); MEAN CORPUSCULAR VOLUME 113.2 fl (80.0-96.0); RED BLOOD COUNT 1.59 10^6/uL (4.00-5.40); WHITE BLOOD COUNT 7.1 10^3/uL (4.0-10.0)
[2024-10-03 11:10] LABS: HEMOGLOBIN 5.5 g/dl (12.0-15.5); PLATELET COUNT, AUTOMATED 80 10^3/uL (150-450)
[2024-10-03 11:25] LABS: PARTIAL THROMBOPLASTIN TIME 80.6 SECONDS (24.8-34.2)
[2024-10-03 11:29] LABS: VENOUS HCO3 5.8 MMOL/L (23.0-27.0); VENOUS O2 SATURATION 97.9 % (60.0-80.0); VENOUS PARTIAL PRESSURE CO2 48.3 mmHg (38.0-50.0); VENOUS PARTIAL PRESSURE O2 184.7 mmHg (30.0-50.0); VENOUS PH 6.698 UNITS (7.330-7.430); VENOUS STANDARD HCO3 3.7 MMOL/L; VENOUS TOTAL CO2 7.3 MMOL/L (24.0-28.0)
[2024-10-03 11:32] LABS: ATYPICAL LYMPH 1 % (0-5); LYMPHOCYTES 14 % (16-44); METAMYELOCYTES 2 % (0-0); MONOCYTES 4 % (0-5); MYELOCYTES 1 % (0-0); NEUTROPHILS 59 % (28-66)
[2024-10-03 11:33] LABS: ANISOCYTOSIS 1+; PLATELET CLUMPS SMALL AMT; PLATELET ESTIMATE DECREASED (NORMAL)
[2024-10-03 11:34] LABS: PROTHROMBIN TIME 118.4 SECONDS (12.5-14.5)
[2024-10-03 11:36] LABS: CK-MB VALUE MASS 1.9 NG/ML (<3.6)
[2024-10-03 11:37] LABS: ETHYL ALCOHOL (ETHANOL) 0.003 % (0.000-0.010); LIPASE 57 U/L (12-53)
[2024-10-03 11:38] LABS: CPK CREATINE PHOSPHOKINASE 38 U/L (34-145)
[2024-10-03 11:39] LABS: INR 17.58
[2024-10-03] MEDS ORDERED: TRANEXAMIC ACID 100 MG/ML 10ML VIAL As Ordered ONE (11:39)
[2024-10-03] MEDS ORDERED: [UNRECOGNIZED DRUG - OTHER] IV ONE (11:40)
[2024-10-03] MEDS ORDERED: [UNRECOGNIZED DRUG - OTHER] IV ONE (11:40)
[2024-10-03] MEDS ORDERED: DILUENT IV ONE ×2 (11:40)
[2024-10-03 11:41] LABS: DIGOXIN LEVEL 1.1 NG/ML (0.8-2.0)
[2024-10-03 11:42] LABS: ALKALINE PHOSPHATASE 123 U/L (35-104); ALT/SGPT 135 U/L (7.0-40); AST/SGOT 378 U/L (<34); BILIRUBIN,DIRECT 12.2 MG/DL (<0.4); BILIRUBIN,TOTAL 15.9 MG/DL (0.3-1.2); BLOOD UREA NITROGEN 36 MG/DL (9-23); CALCIUM LEVEL 7.3 MG/DL (8.5-10.1); CHLORIDE LEVEL 96 MMOL/L (98-107); CREATININE FOR GFR 3.27 MG/DL (0.55-1.30); GLOMERULAR FILTRATION RATE 15.5 (>51); GLUCOSE, FASTING 162 MG/DL (60-100); POTASSIUM SERUM 5.2 MMOL/L (3.5-5.1); SODIUM LEVEL 128 MMOL/L (136-145)
[2024-10-03 11:43] LABS: HYPOCHROMASIA 1+
[2024-10-03 11:45] LABS: TOXIC GRANULATION 1+; TOXIC VACUOLATION 1+
[2024-10-03] MEDS ORDERED: EPINEPHrine HCL INJ 1 MG in D5W 240 ML IV SCH (11:45)
[2024-10-03 11:46] LABS: TEAR DROP CELLS 1+
[2024-10-03 11:51] LABS: ABG BASE EXCESS -25.8 (-2.0-2.0); ABG O2 SATURATION 34.2 % (95.0-99.0); ABG STANDARD HCO3 4.4 MMOL/L. (22.0-26.0); ABG TOTAL CO2 10.1 MMOL/L (22.0-29.0)
[2024-10-03 11:52] LABS: ABG PARTIAL PRESSURE CO2 69.3 mmHg (35.0-45.0); ABG pH (ARTERIAL) 6.679 UNITS (7.350-7.450)
[2024-10-03 11:55] LABS: CARBON DIOXIDE LEVEL < 10.0 MMOL/L (20-31); TOTAL PROTEIN 3.7 G/DL (5.7-8.2)
[2024-10-03] MEDS ORDERED: CALCIUM GLUCONATE 1,000MG/10ML VIAL (100MG/ML) IV ONE (12:10)
[2024-10-03] MEDS ORDERED: SODIUM BICARBONATE 8.4% INJ 50ML SYRINGE As Ordered ONE (12:14)
[2024-10-03] MEDS ORDERED: SODIUM BICARBONATE 8.4% INJ 50ML SYRINGE IV STA (12:15)
[2024-10-03 14:28] VITALS: BP 74/56; O2SAT 100
== END 2024-10-03 16:32 | disposition expired ==
LOC: M ED 10:35 → EDBD 10:35 → M ED 16:32
DX: I46.9 Cardiac arrest, cause unspecified (principal); K92.2 Gastrointestinal hemorrhage, unspecified; I48.91 Unspecified atrial fibrillation; I10 Essential (primary) hypertension; K76.0 Fatty (change of) liver, not elsewhere classified; F17.210 Nicotine dependence, cigarettes, uncomplicated; F10.10 Alcohol abuse, uncomplicated; Z88.1 Allergy status to other antibiotic agents; Z88.5 Allergy status to narcotic agent; Z79.01 Long term (current) use of anticoagulants; Z79.52 Long term (current) use of systemic steroids; Z79.899 Other long term (current) drug therapy
CPT/HCPCS: 36430; 71045; 80047; 80053; 80162; 82077; 82248; 82550; 82553; 82803; 83690; 84484; 85025; 85049; 85055; 85384; 85610; 85730; 86850; 86920; 87040; 87077; 87154; 87186; 92950; 94760; 96374; 96375; 99291; 99292; J2354; J2405; J2470; J2598; P9016; P9059